=== PATIENT | female | born 1985 | race Caucasian/White ===

== ENCOUNTER 2016-10-27 07:32 | Emergency (ER) | payer BC ==
[2016-10-27] MEDS ORDERED: diPHENhydraMINE PO* 25 MG PO ONE (08:09)
[2016-10-27 08:54] VITALS: BP 124/69
--- NOTE | 2016-10-27 15:00 | ED ---
Ashlie Silveira Thomas, scribed for Rufus Gaytan MD on 10/27/16 at 0800 . Skin Complaint - HPI Summary HPI Summary: The pt is a 31 y/o F that presents to the ED c/o many pruritic rashes on her bilateral LEs below the knee that began 7 days ago. There is also a single rash to her L forearm. She denies pain to the affected areas but reports that she has constant itching. The rashes are slightly raised in appearance and have a blue border, which the pt attributes to topical application of "some [place] medication". The pt admits that she has scratched the rashes profusely in the past week, including in the examination room. The pt took Benadryl ADVERTISING DIRECTOR to minor relief of itching. The pt reports that it is probable that she had recent exposure to insect bites. - History of Current Complaint Chief Complaint: EDRashSkinAbscess Time Seen by Provider: 10/27/16 07:54 Stated Complaint: ITCHY BUG BITES Hx Obtained From: Patient Hx Last Menstrual Period: 25 WEEKS Onset/Duration: Started Days Ago - 7 days, Still Present Timing: Constant Current Severity: None Pain Intensity: 0 Pain Scale Used: 0-10 Numeric Skin Location: Leg - bilaterally below the the knees Character: Pruritus, Raised Aggravating Symptom(s): Nothing Alleviating Symptom(s): Other: - benadryl, to minor relief Associated Signs & Symptoms: Rash Related History: Possible Reaction to: Insect - Additional Pertinent History Primary Care Physician: GEOVANNY - Allergy/Home Medications Allergies/Adverse Reactions: Allergies Allergy/AdvReac Type Severity Reaction Status Date / Time Doxycycline Allergy Rash And Verified 10/27/16 07:36 Itching PMH/Surg Hx/FS Hx/Imm Hx Previously Healthy: No Cardiovascular History: Denies: Hx Pacemaker/ICD History: Reports: Other Problems/Disorders - UTI Psychiatric History: Reports: Hx Anxiety, Hx Depression, Hx Community Mental Health Tx, Hx Suicide Attempt Denies: Hx Panic Disorder, Hx of Violent Episodes Against Others, Hx Substance Abuse - Surgical History Surgery Procedure, Year, and Place: CYST REMOVED FROM LT [facility], NOSE SURGERY Infectious Disease History: No Infectious Disease History: Denies: Traveled Outside the [place] in Last 30 Days - Family History Known Family History: Negative: Hypertension, Diabetes - Social History Alcohol Use: None Substance Use Type: Reports: None Smoking Status (MU): Never Smoked Tobacco Review of Systems Constitutional: Negative Negative: Fever, Chills Eyes: Negative ENT: Negative Cardiovascular: Negative Respiratory: Negative Gastrointestinal: Negative Genitourinary: Negative Musculoskeletal: Negative Positive: Rash - many slighlty raised blue-appearing and pruritic rashes to the bilateral LEs below the knee with one rash on the L forearm Neurological: Negative Psychological: Normal All Other Systems Reviewed And Are Negative: Yes Physical Exam - Summary Physical Exam Summary: VITAL SIGNS: Reviewed. GENERAL: ~Patient is a well-developed and nourished female who is lying comfortable in the stretcher. ~Patient is not in any acute respiratory distress. HEAD AND FACE: No signs of trauma. ~No ecchymosis, hematomas or skull depressions. No sinus tenderness. EYES: PERRLA, EOMI x 2, No injected conjunctiva, no nystagmus. EARS: Hearing grossly intact. Ear canals and tympanic membranes are within normal limits. MOUTH: Oropharynx within normal limits. NECK: Supple, trachea is midline, no adenopathy, no JVD, no carotid bruit, no c- spine tenderness, neck with full ROM. CHEST: Symmetric, no tenderness at palpation LUNGS: Clear to auscultation bilaterally. No wheezing or crackles. CVS: Regular rate and rhythm, S1 and S2 present, no murmurs or gallops appreciated. ABDOMEN: Soft, non-tender. No signs of distention. No rebound no guarding, and no masses palpated. Bowel sounds are normal. EXTREMITIES: FROM in all major joints, no edema, no cyanosis or clubbing. NEURO: Alert and oriented x 3. No acute neurological deficits. Speech is normal and follows commands. SKIN: Many blue-appearing rashes to the bilateral lower extremities below the knee. One rash on the L forearm. Dry and warm Triage Information Reviewed: Yes Vital Signs On Initial Exam: Initial Vitals Pulse Resp BP Pulse Ox 64 16 119/77 98 10/27/16 07:35 10/27/16 07:35 10/27/16 07:35 10/27/16 07:35 Vital Signs Reviewed: Yes - Porfirio Coma Scale Coma Scale Total: 15 Diagnostics - Vital Signs Vital Signs Temp Pulse Resp BP Pulse Ox 10/27/16 07:50 76 98 10/27/16 07:37 98.1 F 69 16 119/77 98 10/27/16 07:35 64 16 119/77 98 - Laboratory Lab Statement: Any lab studies that have been ordered have been reviewed, and results considered in the medical decision making process. Course/Dx - Course Assessment/Plan: The pt is a 31 y/o F that presents to the ED c/o many pruritic rashes on her bilateral LEs below the knee that began 7 days ago. There is also a single rash to her L forearm. She denies pain to the affected areas but reports that she has constant itching. The rashes are slightly raised in appearance and have a blue border, which the pt attributes to "some [place] medication". The pt admits that she has scratched the rashes profusely in the past week, including in the examination room. The pt took Benadryl ADVERTISING DIRECTOR to no or minor relief of itching. The pt reports that she thinks that she had recent exposure to bug bites. Bites are only in exposed areas. I believe her symptoms are due to insect bites and possible a reaction to this topical cream. She does not know the name of the medications. Therefore, she was asked to not use the current medication just apply Caladryl and take benadryl PRN for itching. She understands and agrees. I discussed all the findings and test results with the patient. Patient was instructed to return to the emergency room immediately if any of the symptoms return or worsens. Plan of care was discussed with the patient and understands and agrees. All questions were answered at patient satisfaction. There were no further complaints or concerns. Lung exam before discharge: CTA B/L. Good air exchange. No wheezing or crackles heard. CVS: S1 and S2 present. No murmurs appreciated. Patient is alert and oriented x 3. Patient is hemodynamically stable. Patient will be discharged home with follow up PCP in the next 2-3 days - Differential Diagnoses - Skin Complaint Differential Diagnoses: Poison [place], Poison [place], Scabies, Urticaria - Diagnoses Provider Diagnoses: Insect bites Discharge - Discharge Plan Condition: Stable Disposition: HOME Prescriptions: diPHENhydraMINE PO* [Benadryl PO 25 MG TAB*] 25 mg PO TID PRN #30 tab PRN Reason: Itching Patient Education Materials: Insect Bite or Sting (ED) Referrals: Bev Villa MD [Primary Care Provider] - 3 Days The documentation as recorded by the tarasibAshlie hewitt Thomas accurately reflects the service I personally performed and the decisions made by me, Rufus Gaytan MD.
== END 2016-10-27 08:53 | disposition home or self-care (01) ==
LOC: ED 07:32
DX: O26.892 Other specified pregnancy related conditions, second trimester (principal); S80.862A Insect bite (nonvenomous), left lower leg, initial encounter; S80.861A Insect bite (nonvenomous), right lower leg, initial encounter; S50.862A Insect bite (nonvenomous) of left forearm, initial encounter; Z3A.25 25 weeks gestation of pregnancy; W57.XXXA Bitten or stung by nonvenomous insect and other nonvenomous arthropods, initial encounter; Y93.9 Activity, unspecified; Y92.9 Unspecified place or not applicable; Z88.1 Allergy status to other antibiotic agents; F41.9 Anxiety disorder, unspecified; F32.9 Major depressive disorder, single episode, unspecified
CPT/HCPCS: 99282; A9270-GY

== ENCOUNTER 2016-11-03 11:24 | Emergency (ER) | payer BC ==
[2016-11-03 11:30] VITALS: BP 114/71
== END 2016-11-03 14:50 | disposition left against medical advice (07) ==
LOC: ED 11:24
DX: T14.8 Other injury of unspecified body region (principal); W57.XXXA Bitten or stung by nonvenomous insect and other nonvenomous arthropods, initial encounter; Y93.9 Activity, unspecified; Y92.9 Unspecified place or not applicable; Y99.9 Unspecified external cause status; Z53.21 Procedure and treatment not carried out due to patient leaving prior to being seen by health care provider

== ENCOUNTER → 2016-11-15 09:38 | Emergency (ER) | payer BC ==
[~2016-11-15 09:38] MED LIST: NS 0.9% 1000 ML* 1,000 ML IV ONE; Ondansetron INJ* 2 MG/ML VIAL IV ONE
--- NOTE | 2016-11-15 11:28 | ED ---
Abdominal Pain/Female - HPI Summary HPI Summary: Patient presents with 1 days of dizziness and nausea. She awoke this morning with these symptoms and they have been constant. She feels improved since this morning. Denies fevers, sweats, chills or weakness. Denies constipation, notes some looser stools since yesterday. Denies eating anything abnormal. She has never had this before. Chance of , but test 2 days confirmed negative. She denies confusion, weakness, visual disturbances. Denies rash or known tick bite. Denies [place], malaise or body aches. She is afebrile on arrival to the ED. She continues to feels nauseous but dizziness has improved. Dizziness worse with standing quickly and better with laying down. Denies any pain at this time, has taken no medications and denies allergies. - History of Current Complaint Chief Complaint: EDGeneral Stated Complaint: DIZZY/NAUSEA Time Seen by Provider: 11/15/16 09:54 Hx Obtained From: Patient ?: No Onset/Duration: Sudden Onset Timing: Constant Severity Initially: Mild Severity Currently: Mild Pain Intensity: 0 Pain Scale Used: 0-10 Numeric Alleviating Factor(s): Position Associated Signs and Symptoms: Positive: Negative - Risk Factors Ectopic Risk Factor: Maternal Age ^ 30 Allergies/Adverse Reactions: Allergies Allergy/AdvReac Type Severity Reaction Status Date / Time Doxycycline Allergy Rash And Verified 11/15/16 09:42 Itching PMH/Surg Hx/FS Hx/Imm Hx Previously Healthy: Yes Cardiovascular History: Denies: Hx Pacemaker/ICD History: Reports: Other Problems/Disorders - UTI Psychiatric History: Reports: Hx Anxiety, Hx Depression, Hx Community Mental Health Tx, Hx Suicide Attempt Denies: Hx Panic Disorder, Hx of Violent Episodes Against Others, Hx Substance Abuse - Surgical History Surgery Procedure, Year, and Place: CYST REMOVED FROM LT [facility], NOSE SURGERY - Immunization History Hx Pertussis Vaccination: No Immunizations Up to Date: Unable to Obtain/Confirm Infectious Disease History: No Infectious Disease History: Denies: Traveled Outside the [place] in Last 30 Days - Family History Known Family History: Negative: Hypertension, Diabetes - Social History Occupation: Unemployed Lives: With Family Alcohol Use: None Hx Substance Use: No Substance Use Type: Reports: None Hx Tobacco Use: No Smoking Status (MU): Never Smoked Tobacco Do You Chew or Dip Tobacco: No Review of Systems Constitutional: Negative Eyes: Negative ENT: Negative Respiratory: Negative Positive: Nausea Positive: no symptoms reported, see HPI Musculoskeletal: Negative Neurological: Other - dizziness Psychological: Normal All Other Systems Reviewed And Are Negative: Yes Physical Exam Triage Information Reviewed: Yes Vital Signs On Initial Exam: Initial Vitals Temp Pulse Resp BP Pulse Ox 98.1 F 71 16 128/71 97 11/15/16 09:42 11/15/16 09:42 11/15/16 09:42 11/15/16 09:42 11/15/16 09:42 Vital Signs Reviewed: Yes Appearance: Positive: Well-Appearing, Well-Nourished Skin: Positive: Warm, Skin Color Reflects Adequate Perfusion Head/Face: Positive: Normal Head/Face Inspection Eyes: Positive: EOMI, LATANYA, Conjunctiva Clear Neck: Positive: Supple, No Lymphadenopathy Respiratory/Lung Sounds: Positive: Clear to Auscultation, Breath Sounds Present Cardiovascular: Positive: Normal, RRR, Pulses are Symmetrical in both Upper and Lower Extremities Abdomen Description: Positive: Nontender, No Organomegaly Bowel Sounds: Positive: Present Musculoskeletal: Positive: Normal, Strength/ROM Intact Neurological: Positive: Normal, Sensory/Motor Intact, Alert, Oriented to Person Place, Time Psychiatric: Positive: Normal AVPU Assessment: Alert - Porfirio Coma Scale Coma Scale Total: 15 Diagnostics - Vital Signs Vital Signs Temp Pulse Resp BP Pulse Ox 11/15/16 10:35 98.7 F 68 20 107/70 99 11/15/16 09:42 98.1 F 71 16 128/71 97 - Laboratory Result Diagrams: 11/15/16 11:40 11/15/16 11:40 Lab Statement: Any lab studies that have been ordered have been reviewed, and results considered in the medical decision making process. Abdominal Pain Fem Course/Dx - Course Course Of Treatment: Patient given 1L normal saline. zofran with effect. Labs drawn. Labs WNL. Patient recently discontinued prednisone for scabies infection. Likely this is the cause of the dizziness. It was explained to patient and she agress. Meclizine and zofran rx. Medications were reveiwed with patient. Encouarged to follow up with PCP or return to ED for worsening symptoms. Return precautions given. Patient understands and agrees with plan. Ok for discharge. - Diagnoses Differential Diagnosis: Positive: Other - dizziness, BPPV, medication reaction Provider Diagnoses: Dizziness Discharge - Discharge Plan Condition: Stable Disposition: HOME Prescriptions: Meclizine TAB* [Antivert 12.5 TAB*] 12.5 mg PO TID #30 tab Ondansetron ODT TAB* [Zofran 4 MG Odt TAB*] 4 mg PO Q6H PRN #12 tab.odt MDD 4 PRN Reason: Nausea Patient Education Materials: Dizziness (ED) Referrals: Bev Villa MD [Primary Care Provider] - Additional Instructions: Follow up with your PCP Drink plenty of fluids If symptoms become worse, return to the ED
[2016-11-15 12:05] LABS: Hematocrit 45 % (35-47); Hemoglobin 14.9 g/dl (12.0-16.0); Mean Corpuscular HGB Conc 33 g/dl (31-36); Mean Corpuscular Hemoglobin 30 pg (27-31); Mean Corpuscular Volume 91 fL (80-97); Mean Platelet Volume 9 um3 (7.4-10.4); Red Blood Count 4.97 10^6/ul (4.0-5.4); Red Cell Distribution Width 13 % (10.5-15); White Blood Count 8.3 10^3/ul (3.5-10.8)
[2016-11-15 12:24] LABS: ALT 10 U/L (7-52); AST 14 U/L (13-39); Albumin 4.3 g/dL (3.2-5.2); Alkaline Phosphatase 57 U/L (34-104); Anion Gap 8 mmol/L (2-11); BUN/Creatinine Ratio 21.7 (8-20); Blood Urea Nitrogen 13 mg/dL (6-24); C Reactive Protein < 1.00 mg/L (< 5.00); CO2 Carbon Dioxide 26 mmol/L (22-32); Calcium 9.5 mg/dL (8.6-10.3); Chloride 103 mmol/L (101-111); Creatine Kinase 28 U/L (10-223); EGFR Non-African American 117.4 (>60); Globulin 2.9 g/dL (2-4); Glucose 84 mg/dL (70-100); Lipase 14 U/L (11.0-82.0); Magnesium 2.1 mg/dL (1.9-2.7); Potassium 3.8 mmol/L (3.5-5.0); Sodium 137 mmol/L (133-145); Total Protein 7.2 g/dL (6.4-8.9)
[2016-11-15 14:04] LABS: Urine Bilirubin Negative (Negative); Urine Glucose Negative (Negative); Urine Nitrite Negative (Negative)
[2016-11-15 14:22] VITALS: BP 116/73
== END | disposition home or self-care (01) ==
LOC: ED 09:38
DX: R42 Dizziness and giddiness (principal); R11.0 Nausea
CPT/HCPCS: 36415; 80053; 81003; 82550; 83605; 83690; 83735; 85025; 86140; 96374; 99283; J2405

== ENCOUNTER 2017-03-22 15:15 | Emergency (ER) | payer BC ==
[2017-03-22 15:23] VITALS: BP 123/68
--- NOTE | 2017-03-22 17:41 | ED ---
Breast Complaint - HPI Summary HPI Summary: Patient presents with 12 hour history of right breast pain, erythema and warmth. Currently breast-feeding. She states she has had this before and was given antibiotics. Endorses a fever highest at 100.5. She has felt fatigued x 1 day. Continues to breast feed. She states yesterday she sustained an injury to the breast when her son bit the end of the nipple. Since that time, the breast has slowly become more painful and red. She just started feeling more ill this morning. Denies health problems. Denies hx of MRSA. - History of Current Complaint Hx Obtained From: Patient Breast Chief Complaint: Breast, Right, Inflammation, Color Changes Onset/Duration: Started Hours Ago Timing: Constant Breast Pain Aggravating Factors: Breast Feeding, Palpation Breast Pain Alleviating Factors: Nothing Breast Associated Signs/Symptoms: Fever, Warmth Breast Related History: Similar Diagnosis as: - previous mastitis - Additional Pertinent History Primary Care Physician: GEOVANNY Breast History: Breastfed Previously with [facility] - Allergy/Home Medications Allergies/Adverse Reactions: Allergies Allergy/AdvReac Type Severity Reaction Status Date / Time Doxycycline Allergy Rash And Verified 11/15/16 09:42 Itching PMH/Surg Hx/FS Hx/Imm Hx Previously Healthy: Yes Cardiovascular History: Denies: Hx Pacemaker/ICD History: Reports: Other Problems/Disorders - UTI Psychiatric History: Reports: Hx Anxiety, Hx Depression, Hx Community Mental Health Tx, Hx Suicide Attempt Denies: Hx Panic Disorder, Hx of Violent Episodes Against Others, Hx Substance Abuse - Surgical History Surgery Procedure, Year, and Place: CYST REMOVED FROM LT [facility], NOSE SURGERY - Immunization History Hx Pertussis Vaccination: No Immunizations Up to Date: Unable to Obtain/Confirm Infectious Disease History: No Infectious Disease History: Denies: Traveled Outside the [place] in Last 30 Days - Family History Known Family History: Negative: Hypertension, Diabetes - Social History Occupation: Unemployed Lives: With Family Alcohol Use: Rare Hx Substance Use: No Substance Use Type: Reports: None Hx Tobacco Use: No Smoking Status (MU): Never Smoked Tobacco Review of Systems Positive: Fever, Chills, Fatigue. Negative: Skin Diaphoresis Eyes: Negative ENT: Negative Cardiovascular: Negative Respiratory: Negative Positive: no symptoms reported, see HPI Musculoskeletal: Negative Neurological: Negative All Other Systems Reviewed And Are Negative: Yes Physical Exam Triage Information Reviewed: Yes Vital Signs On Initial Exam: Initial Vitals Temp Pulse Resp BP Pulse Ox 99 F 89 18 123/68 99 03/22/17 15:20 03/22/17 15:20 03/22/17 15:20 03/22/17 15:20 03/22/17 15:20 Vital Signs Reviewed: Yes Appearance: Positive: Well-Appearing, Well-Nourished Skin: Positive: Skin Color Reflects Adequate Perfusion, Other - breast warmth and redness Head/Face: Positive: Normal Head/Face Inspection Eyes: Positive: EOMI, LATANYA, Conjunctiva Clear Neck: Positive: Supple, No Lymphadenopathy Respiratory/Lung Sounds: Positive: Clear to Auscultation, Breath Sounds Present Cardiovascular: Positive: Pulses are Symmetrical in both Upper and Lower Extremities Musculoskeletal: Positive: Strength/ROM Intact Neurological: Positive: Speech Normal Psychiatric: Positive: Normal, Affect/Mood Appropriate - [place] Coma Scale Coma Scale Total: 15 Diagnostics - Vital Signs Vital Signs Temp Pulse Resp BP Pulse Ox 03/22/17 15:32 100.1 F 03/22/17 15:20 99 F 89 18 123/68 99 - Laboratory Lab Statement: Any lab studies that have been ordered have been reviewed, and results considered in the medical decision making process. Breast Pain Course/Dx - Course Course Of Treatment: Patient evaluated for right breast pain, redness, and warmth. Continues to breast feed with pain, but without obstruction. Denies fullness in the breast. Fever at 100.5 on arrival. Has not taken any OTC medications. Pain and tenderness with redness in the right upper quadrant of the breast x 1 day. According to UTD, after 12 hours or accompanied by fever should be treated with abx. She is given dicloxicillin 500mg four times daily for 7 days. Encouraged ice packs, ibuprofen for swelling and probiotics on opposite schedule. Continue to drain breast and breast feed. She is Ok with plan and discharge. Tylenol for pain and fever. - Differential Diagnoses Differential Diagnosis/HQI/PQRI: Mastitis - Diagnoses Provider Diagnoses: Nonpurulent mastitis associated with Discharge - Discharge Plan Condition: Stable Disposition: HOME Prescriptions: Dicloxacillin CAP* [Dynapen CAP*] 500 mg PO QID #28 cap Patient Education Materials: Mastitis (ED) Referrals: Bev Villa MD [Primary Care Provider] - Additional Instructions: Lactational Mastitis Initial management of nonsevere lactational mastitis consists of symptomatic treatment to reduce pain and swelling (nonsteroidal inflammatory agents, cold compresses) and complete emptying of the breast (via ongoing , pumping, and/or hand expression); cessation of is not required. If you have a fever, symptoms have remained over 12 hours, anitbiotics are recommended. Dicloxicillin 500 mg orally four times daily x 7 days. If you develop fevers, sweats or chills, worsening pain, redness, warmth or are unable to fully empty the breast you need to return to the ED immediately. Administration of a Lactobacillus probiotic during late may reduce the likelihood of lactational mastitis. Although the kiln stoker recommends that caution be exercised when administering dicloxacillin to women, penicillins are considered compatible with when used in usual recommended doses. Dicloxacillin has been recommended to treat mastitis in lactating women. Tylenol 650mg three times daily for fevers and pain.
== END 2017-03-22 16:02 | disposition home or self-care (01) ==
LOC: ED 15:15
DX: O91.22 Nonpurulent mastitis associated with the puerperium (principal); R50.9 Fever, unspecified; R53.83 Other fatigue
CPT/HCPCS: 99282

== ENCOUNTER 2017-07-18 19:36 | Emergency (ER) | payer BC ==
--- NOTE | 2017-07-18 21:26 | RAD ---
INDICATION: Breast feeding. Right breast swelling COMPARISON: None TECHNIQUE: Radial and antiradial scans of the breast were performed using grayscale and color Doppler imaging. FINDINGS: There are no cystic or solid masses. There is no acoustic shadowing. There is no distortion of the breast architecture. The sonographic findings are within normal limits. IMPRESSION: NO CYSTIC OR SOLID BREAST MASS. NO EVIDENCE OF ABSCESS FORMATION. CLINICAL MANAGEMENT OF THE SKIN CHANGE IN THE AREA OF INDURATION IS REQUIRED. ASSESSMENT: ACR BIRADS Category 1: Negative
--- NOTE | 2017-07-18 22:07 | ED ---
Skin Complaint - HPI Summary HPI Summary: 31-year-old female presents with right breast erythema and edema for the past day. States she has been breast-feeding for 2 years. She states she has had 3 episodes of mastitis. She states this feels similar. She has been pumping today. She continues to pump. She denies any fevers or chills. She denies any chest pain or shortness of breath. She denies any abnormal nipple discharge. She denies any bowel pain nausea vomiting. She states that every time she tries to stop breast-feeding she develops mastitis. - History of Current Complaint Chief Complaint: EDBreastComplaint Time Seen by Provider: 07/18/17 20:07 Stated Complaint: RED SWOLLEN BREAST/PAIN Pain Intensity: 7 - Additional Pertinent History Primary Care Physician: GEOVANNY - Allergy/Home Medications Allergies/Adverse Reactions: Allergies Allergy/AdvReac Type Severity Reaction Status Date / Time doxycycline Allergy Rash And Verified 07/18/17 19:46 Itching PMH/Surg Hx/FS Hx/Imm Hx Cardiovascular History: Denies: Hx Pacemaker/ICD History: Reports: Other Problems/Disorders - UTI Sensory History: Psychiatric History: Reports: Hx Anxiety, Hx Depression, Hx Community Mental Health Tx, Hx Suicide Attempt Denies: Hx Panic Disorder, Hx of Violent Episodes Against Others, Hx Substance Abuse - Surgical History Surgery Procedure, Year, and Place: CYST REMOVED FROM LT [facility], NOSE SURGERY Infectious Disease History: No Infectious Disease History: Denies: Traveled Outside the [place] in Last 30 Days - Family History Known Family History: Negative: Hypertension, Diabetes - Social History Alcohol Use: Rare Hx Substance Use: No Substance Use Type: Reports: None Hx Tobacco Use: No Smoking Status (MU): Never Smoked Tobacco Review of Systems Negative: Fever Negative: Chest Pain Negative: Shortness Of Breath Positive: Rash, Other - right breast tenderness All Other Systems Reviewed And Are Negative: Yes Physical Exam Triage Information Reviewed: Yes Vital Signs On Initial Exam: Initial Vitals Temp Pulse Resp BP Pulse Ox 98.6 F 88 16 106/61 97 07/18/17 19:43 07/18/17 19:43 07/18/17 19:43 07/18/17 19:43 07/18/17 19:43 Vital Signs Reviewed: Yes Appearance: Positive: Well-Appearing Skin: Positive: Warm, Dry, Other - erythema to right breast at 9 position Head/Face: Positive: Normal Head/Face Inspection Eyes: Positive: Normal, Conjunctiva Clear Respiratory/Lung Sounds: Positive: Clear to Auscultation, Breath Sounds Present Cardiovascular: Positive: Normal, RRR Musculoskeletal: Positive: Normal Neurological: Positive: Normal Psychiatric: Positive: Affect/Mood Appropriate Diagnostics - Vital Signs Vital Signs Temp Pulse Resp BP Pulse Ox 07/18/17 19:43 98.6 F 88 16 106/61 97 - Laboratory Lab Statement: Any lab studies that have been ordered have been reviewed, and results considered in the medical decision making process. - Ultrasound No standard instances Ultrasound Interpretation: No Acute Changes Ultrasound Interpretation Completed By: Radiologist Course/Dx - Course Course Of Treatment: 31-year-old female presents with right breast erythema and edema for the past day. States she has been breast-feeding for 2 years. She states she has had 3 episodes of mastitis. She states this feels similar. She has been pumping today. She continues to pump. She denies any fevers or chills. She denies any chest pain or shortness of breath. She denies any abnormal nipple discharge. She denies any bowel pain nausea vomiting. She states that every time she tries to stop breast-feeding she develops mastitis. on exam has erythema of near nipple of right breast at 9 position. u/s no abscess. will treat as mastitis with dicloxacin. patient understand and agrees with plan. - Differential Diagnoses - Skin Complaint Differential Diagnoses: Abscess, Cellulitis, Contact Dermatitis - Diagnoses Provider Diagnoses: Mastitis Discharge - Sign-Out/Discharge Documenting (check all that apply): Discharge - Discharge Plan Condition: Good Disposition: HOME Prescriptions: Dicloxacillin CAP* [Dynapen CAP*] 500 mg PO QID #29 cap Patient Education Materials: Mastitis (ED) Referrals: Bev Villa MD [Primary Care Provider] - Additional Instructions: Take antibiotic four times a day for [address] ice on area Take tyenlol or ibuprofen every 6 hours for pain Return to ED if develop any new or worsening symptoms - Billing Disposition and Condition Condition: GOOD Disposition: HOME
[2017-07-18] MEDS ORDERED: Dicloxacillin CAP* 250 MG PO ONE (22:12)
[2017-07-18 22:35] VITALS: BP 110/69
== END 2017-07-18 22:36 | disposition home or self-care (01) ==
LOC: ED 19:36
DX: N61.0 Mastitis without abscess (principal)
CPT/HCPCS: 99283; A9270-GY

== ENCOUNTER 2017-08-15 08:02 | Emergency (ER) | payer BC ==
--- NOTE | 2017-08-15 08:38 | ED ---
GI/ HPI - HPI Summary HPI Summary: patient here with vaginal bleeding noted upon waking this morning. Associated sx of mild pelvic cramping, Lt > Rt. She reports the flow is about that of a period and she is about 5 weeks per a nurse call back from hcg testing on 08/11/2017. She had this testing after missing her period. Her serum HCG level was 21 at that time (NOTE: > 25 positive). Her other was healthy. H/o ovarian cyst. No other medical hx. - History of Current Complaint Chief Complaint: EDVaginalBleeding Time Seen by Provider: 08/15/17 08:21 Stated Complaint: VAGINAL BLEEDING Hx Obtained From: Patient Pain Intensity: 6 - Additional Pertinent History Primary Care Physician: GEOVANNY - Allergy/Home Medications Allergies/Adverse Reactions: Allergies Allergy/AdvReac Type Severity Reaction Status Date / Time doxycycline Allergy Rash And Verified 08/15/17 08:04 Itching PMH/Surg Hx/FS Hx/Imm Hx Previously Healthy: Yes Endocrine/Hematology History: Denies: Hx Anticoagulant Therapy, Hx Blood Disorders, Hx Thyroid Disease, Hx Anemia, Hx Unexplained Bleeding Cardiovascular History: Denies: Hx Pacemaker/ICD History: Reports: Other Problems/Disorders - UTI; Lt ovarian cyst Sensory History: Psychiatric History: Reports: Hx Anxiety, Hx Depression, Hx Community Mental Health Tx, Hx Suicide Attempt Denies: Hx Panic Disorder, Hx of Violent Episodes Against Others, Hx Substance Abuse - Surgical History Surgery Procedure, Year, and Place: CYST REMOVED FROM LT [facility], NOSE SURGERY Infectious Disease History: Yes Infectious Disease History: Denies: Traveled Outside the [place] in Last 30 Days - Family History Known Family History: Negative: Hypertension, Diabetes - Social History Occupation: Unemployed Lives: With Family Alcohol Use: Rare Hx Substance Use: No Substance Use Type: Reports: None Hx Tobacco Use: No Smoking Status (MU): Never Smoked Tobacco Review of Systems Constitutional: Negative Negative: Fever, Chills, Fatigue Cardiovascular: Negative Respiratory: Negative Gastrointestinal: Other - cramping Negative: Vomiting, Diarrhea, Nausea Positive: see HPI Musculoskeletal: Negative Skin: Negative Neurological: Negative Psychological: Normal All Other Systems Reviewed And Are Negative: Yes Physical Exam Triage Information Reviewed: Yes Vital Signs On Initial Exam: Initial Vitals Temp Pulse Resp BP Pulse Ox 98.3 F 85 16 117/79 99 08/15/17 08:05 08/15/17 08:05 08/15/17 08:05 08/15/17 08:05 08/15/17 08:05 Vital Signs Reviewed: Yes Appearance: Positive: Well-Appearing, No Pain Distress, Well-Nourished Skin: Positive: Warm, Skin Color Reflects Adequate Perfusion, Dry Head/Face: Positive: Normal Head/Face Inspection Eyes: Positive: Normal, EOMI, Conjunctiva Clear - anicteric sclera ENT: Positive: Normal ENT inspection, Hearing grossly normal, Pharynx normal - mucosa moist Neck: Positive: Supple Respiratory/Lung Sounds: Positive: Clear to Auscultation, Breath Sounds Present Cardiovascular: Positive: Normal, RRR, Pulses are Symmetrical in both Upper and Lower Extremities, S1, S2 Abdomen Description: Positive: No Organomegaly, Soft, Other: - very mild LLQ TTP - no rebounding Bowel Sounds: Positive: Present Pelvic Exam: Positive: Other - deferred Musculoskeletal: Positive: Normal, Strength/ROM Intact Neurological: Positive: Normal, Sensory/Motor Intact, Alert, Oriented to Person Place, Time, CN Intact II-III Psychiatric: Positive: Normal Diagnostics - Vital Signs Vital Signs Temp Pulse Resp BP Pulse Ox 08/15/17 08:05 98.3 F 85 16 117/79 99 - Laboratory Result Diagrams: 08/15/17 08:32 08/15/17 08:32 Lab Statement: Any lab studies that have been ordered have been reviewed, and results considered in the medical decision making process. GIGU Course/Dx - Course Course Of Treatment: Labs reveal hcg of 2. Compared to previous and in light of HPI, suspect miscarriage. She has B+ blood so rhogam is not required at this time. She is also not in any distress and continues to have vaginal bleeding at the flow rate a regular period. Will have her monitor symptoms for dangerous issues and return to the emergency department they present. Otherwise she may follow-up with her PREFORM PLATE MAKER. - Diagnoses Provider Diagnoses: Miscarriage Discharge - Sign-Out/Discharge Documenting (check all that apply): Discharge/Admit/Transfer - Discharge Plan Condition: Stable Disposition: HOME Patient Education Materials: Miscarriage (ED) Referrals: Octaviano Mg MD [Medical Doctor] - Additional Instructions: Follow-up with OBGYN - call today to schedule an appointment. *If you develop fever, chills, vomiting, abdominal pain, heavy bleeding, return to ED - Billing Disposition and Condition Condition: STABLE Disposition: HOME
[2017-08-15 08:42] LABS: ABS Basophils 0.1 10^3/ul (0-0.2); ABS Eosinophils 0.1 10^3/ul (0-0.6); ABS Lymphocytes 1.9 10^3/ul (1.0-4.8); ABS Monocytes 0.6 10^3/ul (0-0.8); ABS Neutrophils 5.4 10^3/ul (1.5-7.7); ABS Nucleated RBC 0 10^3/ul; Eosinophil % 1.1 % (0-6); Hematocrit 42 % (35-47); Hemoglobin 14.1 g/dl (12.0-16.0); Lymphocyte % 23.1 % (25-47); Mean Corpuscular HGB Conc 34 g/dl (31-36); Mean Corpuscular Hemoglobin 30 pg (27-31); Mean Corpuscular Volume 89 fL (80-97); Mean Platelet Volume 8.9 um3 (7.4-10.4); Nucleated Red Blood Cells % 0; Platelet Count 201 10^3/ul (150-450); Red Blood Count 4.69 10^6/ul (4.0-5.4); Red Cell Distribution Width 13 % (10.5-15)
[2017-08-15 09:00] LABS: INR 0.91 (0.77-1.02)
[2017-08-15 09:01] LABS: EGFR Non-African American 119.7 (>60)
[2017-08-15 09:11] VITALS: BP 118/74
--- NOTE | 2017-08-15 09:24 | RAD ---
INDICATION: 5 weeks with bleeding and cramping COMPARISON: None TECHNIQUE: Transvaginal scans were performed as part of determination. FINDINGS: There is endometrial reactive change but there is no sonographic evidence of intrauterine gestation. Endometrium measures 1.4 cm. There is no adnexal mass or free fluid. The right ovary measures 2.7 x 1.5 x 1.9 cm in the left 4.2 x 1.6 x 2.9 cm IMPRESSION: NO SONOGRAPHICALLY IDENTIFIABLE INTRAUTERINE GESTATION. CORRELATION WITH SERIAL BETA HCGS AND FOLLOW-UP ULTRASONOGRAPHY IS REQUIRED TO EVALUATE FOR VIABILITY. NO ADNEXAL MASS OR FREE FLUID.
== END 2017-08-15 10:20 | disposition home or self-care (01) ==
LOC: ED 08:02
DX: O03.9 Complete or unspecified spontaneous abortion without complication (principal)
CPT/HCPCS: 36415; 76817; 80053; 84702; 85025; 85610; 85730; 86850; 86900; 86901; 99282

== ENCOUNTER 2018-03-28 15:24 | Emergency (ER) | payer MEDICAID, OTHER ==
[2018-03-28] MEDS ORDERED: NS 0.9% 1000 ML* 1,000 ML IV ONE (15:52)
--- NOTE | 2018-03-28 16:09 | ED ---
Abdominal Pain/Female - HPI Summary HPI Summary: This patient is a 32 year old female presenting to [facility] with a chief complaint of abd pain for a couple weeks. Patient states that she has had diffuse abd pain and diarrhea. She also notes that she is weeks . Patient is . The pain is rated 3/10 in severity. Symptoms aggravated by nothing. Symptoms alleviated by nothing. Patient denies vaginal bleeding, fever, nausea, or vomiting. - History of Current Complaint Chief Complaint: EDAbdPain Stated Complaint: ABD PAIN/WEAKNESS Time Seen by Provider: 03/28/18 15:54 Hx Obtained From: Patient ?: Yes Onset/Duration: Lasting Weeks, Still Present Timing: Constant Severity Currently: Mild Pain Intensity: 3 Pain Scale Used: 0-10 Numeric Location: Diffuse Aggravating Factor(s): Nothing Alleviating Factor(s): Nothing Associated Signs and Symptoms: Positive: Negative - vaginal bleeding, fever, nausea, or vomiting Allergies/Adverse Reactions: Allergies Allergy/AdvReac Type Severity Reaction Status Date / Time doxycycline Allergy Rash And Verified 03/08/18 06:36 Itching PMH/Surg Hx/FS Hx/Imm Hx Previously Healthy: Yes Endocrine/Hematology History: Denies: Hx Anticoagulant Therapy, Hx Blood Disorders, Hx Thyroid Disease, Hx Anemia, Hx Unexplained Bleeding Cardiovascular History: Denies: Hx Pacemaker/ICD History: Reports: Other Problems/Disorders - UTI; Lt ovarian cyst Sensory History: Psychiatric History: Reports: Hx Anxiety, Hx Depression, Hx Community Mental Health Tx, Hx Suicide Attempt Denies: Hx Panic Disorder, Hx of Violent Episodes Against Others, Hx Substance Abuse - Surgical History Surgery Procedure, Year, and Place: CYST REMOVED FROM LT [facility], NOSE SURGERY - Immunization History Date of Influenza Vaccine: 2018 Infectious Disease History: No Infectious Disease History: Denies: Traveled Outside the [place] in Last 30 Days - Family History Known Family History: Negative: Hypertension, Diabetes - Social History Alcohol Use: Rare Hx Substance Use: No Substance Use Type: Reports: None Hx Tobacco Use: No Smoking Status (MU): Never Smoked Tobacco Review of Systems Negative: Fever Positive: Abdominal Pain, Diarrhea. Negative: Vomiting, Nausea Genitourinary: Negative - vaginal bleeding All Other Systems Reviewed And Are Negative: Yes Physical Exam - Summary Physical Exam Summary: Appearance: Well appearing, no pain distress Skin: warm, dry, reflects adequate perfusion Head/face: normal Eyes: EOMI, LATANYA ENT: mucous membranes moist Neck: supple, non-tender Respiratory: CTA, breath sounds present Cardiovascular: RRR, pulses symmetrical Abdomen: non-tender, soft Bowel Sounds: present, Bedside intrauterine with heartbeat Musculoskeletal: normal, strength/ROM intact Neuro: normal, sensory motor intact, A&Ox3 Triage Information Reviewed: Yes Vital Signs On Initial Exam: Initial Vitals Temp Pulse Resp BP Pulse Ox 96.6 F 87 16 129/73 98 03/28/18 15:27 03/28/18 15:27 03/28/18 15:27 03/28/18 15:27 03/28/18 15:27 Vital Signs Reviewed: Yes Diagnostics - Vital Signs Vital Signs Temp Pulse Resp BP Pulse Ox 03/28/18 15:27 96.6 F 87 16 129/73 98 - Laboratory Result Diagrams: 03/28/18 16:05 03/28/18 16:05 Diagnostic Studies Comment: HCG [id number] Lab Statement: Any lab studies that have been ordered have been reviewed, and results considered in the medical decision making process. - Additional Comments Diagnostic Additional Comments: US Transvaginal reveals, 7 week, 1 day intrauterine . ED physician has reviewed this radiology report. Abdominal Pain Fem Course/Dx - Course Course Of Treatment: Nurse's note reviewed. Patient has no appreciable abdominal pain at present and was unable to provide any stool sample at this time. Intrauterine was confirmed with 7 week 1 day IUP with appropriate quantitative hCG. She will follow-up with her primary care doctor and her BAG PATCHER. She was hydrated here with improvement. - Diagnoses Differential Diagnosis: Positive: Bowel Obstruction, Irritable Bowel Syndrome, Other - Diarrheal illness/bacterial versus viral Provider Diagnoses: Acute diarrhea, Abdominal pain, First trimester Discharge - Sign-Out/Discharge Documenting (check all that apply): Patient Departure - Discharge Plan Condition: Improved Disposition: HOME Patient Education Materials: (ED), Acute Diarrhea (ED) Referrals: Bev Villa MD [Primary Care Provider] - Additional Instructions: Continue vitamin. Drink plenty of fluids. Diet as tolerated. If he continued to have diarrhea, have your doctor order stool testing. Return if fever, pain, bleeding, worse, new symptoms or other concern. - Billing Disposition and Condition Condition: IMPROVED Disposition: Home - Attestation Statements Document Initiated by Scribe: Yes Documenting Scribe: Joshua Goldstein Provider For Whom Scribe is Documenting (Include Credential): Cash Esquivel MD Scribe Attestation: I, Joshua Goldstein, scribed for Cash Esquivel MD on 03/28/18 at 1718. Scribe Documentation Reviewed: Yes Provider Attestation: The documentation as recorded by the Joshua tamayo accurately reflects the service I personally performed and the decisions made by me, Cash Esquivel MD Status of Scribe Document: Viewed
[2018-03-28 16:11] LABS: ABS Basophils 0 10^3/ul (0-0.2); ABS Eosinophils 0.1 10^3/ul (0-0.6); ABS Lymphocytes 2.4 10^3/ul (1.0-4.8); ABS Monocytes 0.6 10^3/ul (0-0.8); ABS Nucleated RBC 0 10^3/ul; Eosinophil % 0.8 %; Hematocrit 41 % (35-47); Hemoglobin 13.8 g/dl (12.0-16.0); Lymphocyte % 29.6 %; Mean Corpuscular HGB Conc 34 g/dl (31-36); Mean Corpuscular Hemoglobin 30 pg (27-31); Mean Corpuscular Volume 88 fL (80-97); Mean Platelet Volume 8.6 fL (7.4-10.4); Nucleated Red Blood Cells % 0.1; Platelet Count 201 10^3/ul (150-450); Red Blood Count 4.62 10^6/ul (4.00-5.40); Red Cell Distribution Width 13 % (10.5-15); White Blood Count 8.1 10^3/ul (3.5-10.8)
[2018-03-28 16:29] LABS: EGFR Non-African American 147.3 (>60)
[2018-03-28 17:13] VITALS: BP 99/73
== END 2018-03-28 17:10 | disposition home or self-care (01) ==
LOC: ED 15:24
DX: O26.891 Other specified pregnancy related conditions, first trimester (principal); Z3A.01 Less than 8 weeks gestation of pregnancy; R19.7 Diarrhea, unspecified; R10.9 Unspecified abdominal pain
CPT/HCPCS: 36415; 76801; 80053; 83605; 83690; 84702; 85025; 86140; 96360; 99282

== ENCOUNTER 2018-11-06 02:23 | Inpatient (IN) | payer OTHER ==
[2018-11-06] MEDS ORDERED: Promethazine INJ(RESTRICTED)* 25 MG/ML 1 ML VIAL IM PRN (02:54)
[2018-11-06] MEDS ORDERED: Nalbuphine* 10 MG/ML 1 ML VIAL IM PRN (02:54)
[2018-11-06] MEDS ORDERED: Penicillin G Potassium IV* 5,000,000 UNITS in NS 0.9% 100 ML* 100 ML IVPB ONE (08:52)
[2018-11-06] MEDS ORDERED: Buffered Lidocaine 1% SYRIN* 1 ML/SYRINGE INTRADERM ONE (08:52)
[2018-11-06] MEDS ORDERED: Lactated Ringers 1000 ML Bag* 1,000 ML IV ONE ×2 (08:52→14:36)
--- NOTE | 2018-11-06 08:59 | HP ---
General Information - Reason for Visit Pt presents with c/o contractions and inability to sleep. Pt reports + FM, denies VB or LOF. - General Information Maternal Age: 33 Grav: 2 Para: 1 SAB: 0 IEA: 0 Estimated Due Date: 11/11/18 Determined By: Early Ultrasound Gestational Age in Weeks/Days: 39.2 Maternal Blood Type and Rh: B Positive - Results this Serology/RPR Result: Non-Reactive Rubella Result: Immune HBsAg Result: Negative HIV Result: Negative GBS Culture Result: Negative Past Medical History Delivery History: Hx Uncomplicated Vaginal Delivery Pertinent Past Medical History: See Records - depression, history of abnormal thyroid labs(now normal) Pertinent Past Surgical History: None Pertinent Family History: See Records - M: HTN, stroke, CVD, DM; aunt : CVD - Antepartal Records Antepartal Records: Reviewed, Complicated by: - marginal previa ( resolved) Review of Systems Constitutional: Uncomfortable CV Complaint: No Respiratory: Shortness of Breath: No Gastrointestinal: No Nausea/Vomiting, Normal Bowel Movement Genitourinary: No Dysuria, No Bleeding, No Leaking Fluid Musculoskeletal: Contractions Neurological: No Headache, No Visual Changes Movement: Normal Exam Allergies/Adverse Reactions: Allergies doxycycline Allergy (Verified 11/05/18 22:03) Rash And Itching 97.9, P:84, R:18, BP:124/82 - Measurements Height: 5 ft 4 in Weight: 167 lb Weight in lbs: [id number] Body Mass Index (BMI): 28.6 Pre- Weight: 138 lb Weight Gained This : 29 lbs and 0 ozs - Exam Breast: Breast Exam Deferred CVA: No CVA Tenderness Extremities: No Edema Heart: Normal Rhythm/Heart Sounds HEENT: No Significant Findings Lungs: Clear Bilaterally Rectal: Rectal Exam Deferred Reflexes: DTR 2+ Thyroid: No Thyromegaly - Abdominal Exam Abdomen Exam: Fundal Height Consistent with Dates - Ultrasound/Biophysical Profile Ultrasound Status: Not Done Targeted Exam Findings Estimated Weight: 7lbs 3oz Cervical Exam: 4cm Effacement: 90% Station: -1 Presenting Part: Vertex Membrane Status: Bulging EFM Findings - External Monitor Findings Baseline Heart Rate: 135 External Monitor Findings: Accelerations Present, No Pattern of Variable or Late Decelerations, Variability Moderate, Baseline Stable Contractions: Regular, Mild, Moderate, 45-90 Seconds Contraction Frequency: 5 min Assessment/Plan - Assessment 33 y.o. , 39w2d EGA, early labor, GBS + - Obstetrical Risk Factors Obstetrical Risk Factors: GBS Positive - Plan Plan: Admit - Anticipate Vaginal Delivery - Date/Time of Admission Date of Admission: 11/06/18 Time of Admission: 09:00
[2018-11-06] MEDS ORDERED: Lactated Ringers 1000 ML Bag* 1,000 ML IV SCH ×3 (09:00→20:00)
[2018-11-06 10:16] LABS: ABS Eosinophils 0.1 10^3/ul (0-0.6); ABS Lymphocytes 2.1 10^3/ul (1.0-4.8); ABS Monocytes 0.7 10^3/ul (0-0.8); ABS Neutrophils 6.2 10^3/ul (1.5-7.7); Eosinophil % 0.7 %; Hematocrit 38 % (35-47); Hemoglobin 13.1 g/dL (12.0-16.0); Lymphocyte % 22.8 %; Mean Corpuscular HGB Conc 35 g/dL (31-36); Mean Corpuscular Hemoglobin 31 pg (27-31); Mean Corpuscular Volume 90 fL (80-97); Platelet Count 150 10^3/uL (150-450); Red Blood Count 4.21 10^6 /uL (3.70-4.87); Red Cell Distribution Width 14 % (10-15)
[2018-11-06] MEDS: Penicillin G Potassium IV* 2,500,000 UNITS in NS 0.9% 100 ML* 100 ML IVPB SCH ×2 (14:05→18:07)
[2018-11-06] MEDS ORDERED: OBEPIDURAL* 250 ML EPIDURAL ONE (14:13)
[2018-11-06] MEDS ORDERED: Phenylephrine 40 MCG/ML SYRINGE IV PUSH PRN ×2 (14:36)
[2018-11-06] MEDS ORDERED: Sodium Citrate/Citric Acid* 15 ML UDC PO PRN (14:36)
[2018-11-06] MEDS ORDERED: Famotidine TAB* 20 MG PO PRN (14:36)
[2018-11-06] MEDS ORDERED: OBEPIDURAL* 250 ML EPIDURAL SCH (15:00)
[2018-11-06] MEDS ORDERED: Oxytocin in LR* 20 UNITS/1,000 ML BAG IVPB ONE (18:53)
[2018-11-06] MEDS ORDERED: Witch Hazel PAD* JAR TOPICAL PRN (19:08)
[2018-11-06] MEDS ORDERED: Acetaminophen TAB* 325 MG PO PRN (19:08)
[2018-11-06] MEDS ORDERED: Dibucaine 1% 28.35 GM TUBE PR PRN (19:08)
[2018-11-06] MEDS ORDERED: Glycerin ADULT SUPP PR PRN (19:08)
--- NOTE | 2018-11-06 19:10 | PROCNOTE ---
[facility] OB: Delivery Note - Delivery A Date of : 11/06/18 Time of : 18:46 Sex: Male Weight at : 8 lb Score 1 Minute: 7 Score 5 Minutes: 8 Gestational Age in Weeks and Days at Delivery: 39 Weeks and 2 Days Delivery Method: Spontaneous Vaginal Labor: Spontaneous Amniotic Fluid: Clear Estimated Blood Loss: 150 Anesthesia/Analgesia: IM/IV, CEI for Labor Delivered By: Adeline Harrell - Nursery Level of Nursery: Regular/Bedside - Perineum Perineal Injury: Perineal Laceration, 1st Degree Perineal Repair: By Delivering Practioner
[2018-11-06] MEDS ORDERED: Simethicone TAB* 80 MG TAB.CHEW PO SCH (21:00)
[2018-11-06] MEDS ORDERED: Lidocaine 1% INJ* 10 MG/ML 30 ML SDV ONE (23:31)
[2018-11-07] MEDS: Ibuprofen TAB* 600 MG PO PRN ×3 (04:07→16:36)
[2018-11-07] MEDS: Docusate CAP* 100 MG PO SCH ×4 (07:26→21:10)
[2018-11-07] MEDS: Penicillin G Potassium IV* 2,500,000 UNITS in NS 0.9% 100 ML* 100 ML IVPB SCH (07:27)
[2018-11-07 08:54] LABS: ABS Basophils 0.1 10^3/ul (0-0.2); ABS Eosinophils 0.1 10^3/ul (0-0.6); ABS Lymphocytes 2.6 10^3/ul (1.0-4.8); ABS Monocytes 0.9 10^3/ul (0-0.8); ABS Neutrophils 8.3 10^3/ul (1.5-7.7); Eosinophil % 0.6 %; Hematocrit 35 % (35-47); Lymphocyte % 21.4 %; Mean Corpuscular HGB Conc 35 g/dL (31-36); Mean Corpuscular Hemoglobin 31 pg (27-31); Mean Corpuscular Volume 91 fL (80-97); Mean Platelet Volume 9.8 fL (7.4-10.4); Nucleated Red Blood Cells % 0.1; Platelet Count 132 10^3/uL (150-450); Red Blood Count 3.83 10^6 /uL (3.70-4.87); Red Cell Distribution Width 14 % (10-15); White Blood Count 11.9 10^3/uL (3.5-10.8)
[2018-11-07] MEDS ORDERED: Ferrous Gluconate TAB* 324 MG TAB PO SCH (09:00)
[2018-11-07] MEDS: Sertraline* 100 MG TAB PO SCH (16:36)
[2018-11-08 09:25] VITALS: BP 129/72
[2018-11-08] MEDS: Sertraline* 100 MG TAB PO SCH (10:22)
[2018-11-08] MEDS: Docusate CAP* 100 MG PO SCH (10:23)
[2018-11-09] MEDS ORDERED: Sertraline* 50 MG TAB PO SCH (09:00)
== END 2018-11-08 13:00 | disposition home or self-care (01) | DRG 560 ==
LOC: MCHOBOUT 02:23 → MCHOB 08:53
PROVIDERS: ADMIT Midwife; ATTEND Midwife
PROC: 10E0XZZ Delivery of Products of Conception, External Approach (ICD-10-PCS; principal; 2018-11-06)
PROC: 10907ZC Drainage of Amniotic Fluid, Therapeutic from Products of Conception, Via Natural or Artificial Opening (ICD-10-PCS; 2018-11-06)
PROC: 0HQ9XZZ Repair Perineum Skin, External Approach (ICD-10-PCS; 2018-11-06)
DX: O99.824 Streptococcus B carrier state complicating childbirth (principal); Z37.0 Single live birth; O70.0 First degree perineal laceration during delivery; O99.344 Other mental disorders complicating childbirth; F32.9 Major depressive disorder, single episode, unspecified; Z3A.39 39 weeks gestation of pregnancy
CPT/HCPCS: 36415; 85025; 86850; 86900; 86901; A9270-GY; J2300; J2540; J2550

== ENCOUNTER 2018-11-30 05:59 | Emergency (ER) | payer OTHER ==
[2018-11-30] MEDS ORDERED: NS 0.9% 1000 ML** 1,000 ML IV ONE (06:29)
[2018-11-30] MEDS ORDERED: Acetaminophen TAB* 325 MG PO ONE (06:30)
--- NOTE | 2018-11-30 06:31 | ED ---
Abdominal Pain/Female - HPI Summary HPI Summary: Pt. is a 33 y.o female who presents to the ER for right sided abd. pain and fever. Pt. notes fever for about 3 days and then developed right sided pain last night. No cough, sob, cp, N/V, diarrhea, or urinary sxs. Pt. s/p uncomplicated vaginal delivery one month ago. No significant past medical hx. Pt. notes yesterday she was having urinary frequency and was rx keflex for suspected UTI. Pt. notes urinary sxs have since resolved. Sxs are moderate in severity. Movement makes sxs worse. Nothing makes sxs better. - History of Current Complaint Chief Complaint: EDAbdPain Stated Complaint: R SIDED ABD PAIN PER PT Time Seen by Provider: 11/30/18 06:12 Hx Obtained From: Patient Pain Intensity: 9 Allergies/Adverse Reactions: Allergies Allergy/AdvReac Type Severity Reaction Status Date / Time doxycycline Allergy Mild Rash And Verified 11/30/18 06:04 Itching Home Medications: Home Medications Cephalexin CAP* [Keflex 500 CAP*] 500 mg PO BID 11/30/18 [History Confirmed ] PMH/Surg Hx/FS Hx/Imm Hx Previously Healthy: Yes Endocrine/Hematology History: Denies: Hx Anticoagulant Therapy, Hx Blood Disorders, Hx Thyroid Disease, Hx Anemia, Hx Unexplained Bleeding Cardiovascular History: Denies: Hx Pacemaker/ICD History: Reports: Other Problems/Disorders - UTI; Lt ovarian cyst Sensory History: Psychiatric History: Reports: Hx Anxiety, Hx Depression, Hx Community Mental Health Tx, Hx Suicide Attempt Denies: Hx Panic Disorder, Hx of Violent Episodes Against Others, Hx Substance Abuse - Surgical History Surgery Procedure, Year, and Place: CYST REMOVED FROM LT [facility], NOSE SURGERY - Immunization History Date of Tetanus Vaccine: unk Date of Influenza Vaccine: fall 2017 Infectious Disease History: No Infectious Disease History: Denies: Traveled Outside the [place] in Last 30 Days - Family History Known Family History: Positive: Non-Contributory Negative: Hypertension, Diabetes - Social History Occupation: Employed Full-time Lives: With Family Alcohol Use: Occasionally Hx Substance Use: No Substance Use Type: Reports: None Hx Tobacco Use: No Smoking Status (MU): Never Smoked Tobacco Have You Smoked in the Last Year: No Review of Systems Positive: Fever, Chills Eyes: Negative ENT: Negative Cardiovascular: Negative Respiratory: Negative Positive: Abdominal Pain. Negative: Vomiting, Diarrhea, Nausea Genitourinary: Negative Musculoskeletal: Negative Skin: Negative Neurological: Negative All Other Systems Reviewed And Are Negative: Yes Physical Exam Triage Information Reviewed: Yes Vital Signs On Initial Exam: Initial Vitals Temp Pulse Resp BP Pulse Ox 100.3 F 103 14 127/79 97 11/30/18 06:02 11/30/18 06:02 11/30/18 06:02 11/30/18 06:02 11/30/18 06:02 Vital Signs Reviewed: Yes Appearance: Positive: Well-Appearing - Pt. lying in bed in NAD. Skin: Positive: Other - Skin dry and hot to touch. Head/Face: Positive: Normal Head/Face Inspection Eyes: Positive: Normal, EOMI Neck: Positive: Supple Respiratory/Lung Sounds: Positive: Clear to Auscultation, Breath Sounds Present Cardiovascular: Positive: Normal, RRR Abdomen Description: Positive: Other: - Abd. is soft with marked tenderness to RLQ with guarding. No RUQ pain. Mild CVA tenderness on right. Musculoskeletal: Positive: Normal, Strength/ROM Intact Neurological: Positive: Normal, Alert, Oriented to Person Place, Time Psychiatric: Positive: Affect/Mood Appropriate Diagnostics - Vital Signs Vital Signs Temp Pulse Resp BP Pulse Ox 11/30/18 06:02 100.3 F 103 14 127/79 97 - Laboratory Result Diagrams: 11/30/18 06:52 11/30/18 06:52 Lab Statement: Any lab studies that have been ordered have been reviewed, and results considered in the medical decision making process. Abdominal Pain Fem Course/Dx - Course Course Of Treatment: Pt. presenting with low grade fever and RLQ pain. WIll obtain labs and CT scan to r/o appy. CBC shows WBC of 11.7, CRP 97. U/A only shows RBCs. CT abd./pelvis per radiology: IMPRESSION: 1. NORMAL APPENDIX. 2. THERE IS A HETEROGENEOUSLY HYPOENHANCING LESION OF THE MIDPOLE THE RIGHT KIDNEY , WITH. MILD PERINEPHRIC INFLAMMATORY CHANGE. THE APPEARANCE IS SUGGESTIVE OF FOCAL. PYELONEPHRITIS, THOUGH RENAL PARENCHYMAL NEOPLASM IS WITHIN THE DIFFERENTIAL.. RECOMMEND. FOLLOW-UP UNTIL RESOLUTION. 3. LEFT NEPHROLITHIASIS WITHOUT HYDRONEPHROSIS. Give fever, flank/abd. pain, elevated CRP and pt.;s recent urinary sxs suspect pyelonephritis. Will give a dose of rocephin and tx with omnicef given breast feeding. Discussed possible mass with pt. She will f.u with pcp for further evaluation. To increase fluids. tylenol or motrin for pain and fever. To return to ER if sxs change or worsen. Pt. understands and agrees with plan. - Diagnoses Differential Diagnosis: Positive: Appendicitis, Gall Bladder Disease, Pelvic Inflammatory Disease, , Renal Colic, Urinary Tract Infection Provider Diagnoses: Pyelonephritis, Abdominal pain Discharge - Sign-Out/Discharge Documenting (check all that apply): Patient Departure Patient Received Moderate/Deep Sedation with Procedure: No - Discharge Plan Condition: Improved Disposition: HOME Prescriptions: ceFIXime [Cefixime] 400 mg PO BID #20 capsule Patient Education Materials: Kidney Infection (ED) Referrals: Bev Villa MD [Primary Care Provider] - Additional Instructions: Follow up with PCP within one week for recheck and for further evaluation of potential kidney mass Start new antibiotic today and stop keflex Increase fluids Tylenol or Motrin for pain and fever as directed Return to ER if symptoms change or worsen - Billing Disposition and Condition Condition: IMPROVED Disposition: Home
[2018-11-30 06:44] LABS: Urine Appearance Clear; Urine Bacteria Absent (Absent); Urine Bilirubin Negative (Negative); Urine Blood 3+ (Negative); Urine Color Yellow; Urine Glucose Negative (Negative); Urine Ketones Negative (Negative); Urine Nitrite Negative (Negative); Urine Protein Negative (Negative); Urine Red Blood Cell 2+(6-10/hpf) (Absent); Urine Specific Gravity 1.013 (1.010-1.030); Urine Urobilinogen Negative (Negative); Urine White Blood Cell Absent (Absent)
[2018-11-30 07:01] LABS: ABS Lymphocytes 1.5 10^3/ul (1.0-4.8); ABS Neutrophils 9.2 10^3/ul (1.5-7.7); Eosinophil % 0.2 %; Hematocrit 39 % (35-47); Hemoglobin 13.2 g/dL (12.0-16.0); Lymphocyte % 13.2 %; Mean Corpuscular HGB Conc 34 g/dL (31-36); Mean Corpuscular Hemoglobin 31 pg (27-31); Mean Corpuscular Volume 91 fL (80-97); Mean Platelet Volume 9.2 fL (7.4-10.4); Nucleated Red Blood Cells % 0.1; Platelet Count 189 10^3/uL (150-450); Red Blood Count 4.27 10^6 /uL (3.70-4.87); Red Cell Distribution Width 13 % (10-15); White Blood Count 11.7 10^3/uL (3.5-10.8)
[2018-11-30 07:20] LABS: Albumin 3.8 g/dL (3.2-5.2); Albumin/Globulin Ratio 1.3 (1-3); C Reactive Protein 97.17 mg/L (<8.01); Calcium 7.9 mg/dL (8.6-10.3); EGFR African American 161.8 (>60); EGFR Non-African American 133.7 (>60); Globulin 2.9 g/dL (2-4); Potassium 4.1 mmol/L (3.5-5.0); Total Bilirubin 0.5 mg/dL (0.2-1.0); Total Protein 6.7 g/dL (6.4-8.9)
[2018-11-30 07:26] LABS: HCG Pregnancy 1.54 mIU/mL
[2018-11-30] MEDS ORDERED: Iohexol 300* (CONTRAST) 10 ML SDV IV ONE (09:02)
[2018-11-30] MEDS ORDERED: cefTRIAXone(*) 1 GM in NS 0.9% 50 ML* 50 ML IVPB ONE (09:47)
[2018-11-30 10:54] VITALS: BP 113/73
== END 2018-11-30 10:53 | disposition home or self-care (01) ==
LOC: ED 05:59
DX: N12 Tubulo-interstitial nephritis, not specified as acute or chronic (principal); N20.0 Calculus of kidney; F41.9 Anxiety disorder, unspecified; F32.9 Major depressive disorder, single episode, unspecified; Z88.1 Allergy status to other antibiotic agents
CPT/HCPCS: 36415; 74177; 80053; 81003; 81015; 83690; 84702; 85025; 86140; 87086; 96361; 96365; 99283; A9270-GY; J0696; Q9967

== ENCOUNTER 2019-01-27 22:45 | Emergency (ER) | payer OTHER ==
[2019-01-27] MEDS ORDERED: Acetaminophen TAB* 325 MG PO ONE (22:57)
[2019-01-27] MEDS ORDERED: NS 0.9% 1000 ML** 1,000 ML IV ONE (23:06)
[2019-01-27] MEDS ORDERED: Ondansetron INJ* 2 MG/ML VIAL IV ONE (23:06)
--- NOTE | 2019-01-27 23:09 | ED ---
HPI Febrile Illness - HPI Summary HPI Summary: 33 year old female presents with fever today. States that she's been having right breast pain today. She has history of mastitis. States it feels similar. She hasn't taking anything for her fever recently. She admits to nausea. States she's had no appetite. No cough. No chest pain or shortness of breath. No abdominal pain. No vomiting. No urinary symptoms. No sore throat. - History of Current Complaint Chief Complaint: EDFever Time Seen by Provider: 01/27/19 22:54 Pain Intensity: 6 - Additional Pertinent History Primary Care Physician: GEOVANNY - Allergy/Home Medications Allergies/Adverse Reactions: Allergies Allergy/AdvReac Type Severity Reaction Status Date / Time doxycycline Allergy Mild Rash And Verified 01/27/19 22:52 Itching PMH/Surg Hx/FS Hx/Imm Hx Endocrine/Hematology History: Denies: Hx Anticoagulant Therapy, Hx Blood Disorders, Hx Diabetes, Hx Thyroid Disease, Hx Anemia, Hx Unexplained Bleeding Cardiovascular History: Denies: Hx Hypertension, Hx Pacemaker/ICD History: Reports: Other Problems/Disorders - UTI; Lt ovarian cyst Denies: Hx Renal Disease Sensory History: Psychiatric History: Reports: Hx Anxiety, Hx Depression, Hx Community Mental Health Tx, Hx Suicide Attempt Denies: Hx Panic Disorder, Hx of Violent Episodes Against Others, Hx Substance Abuse - Surgical History Surgery Procedure, Year, and Place: CYST REMOVED FROM LT [facility], NOSE SURGERY - Immunization History Date of Tetanus Vaccine: unk Date of Influenza Vaccine: fall 2017 Infectious Disease History: No Infectious Disease History: Denies: Traveled Outside the [place] in Last 30 Days - Family History Known Family History: Positive: Non-Contributory Negative: Hypertension, Diabetes - Social History Alcohol Use: Occasionally Hx Substance Use: No Substance Use Type: Reports: None Hx Tobacco Use: No Smoking Status (MU): Never Smoked Tobacco Have You Smoked in the Last Year: No Review of Systems Positive: Fever, Chills Positive: Nausea Positive: Rash All Other Systems Reviewed And Are Negative: Yes Physical Exam Triage Information Reviewed: Yes Vital Signs On Initial Exam: Initial Vitals Temp Pulse Resp BP Pulse Ox 102.4 F 130 16 131/95 97 01/27/19 22:45 01/27/19 22:45 01/27/19 22:45 01/27/19 22:45 01/27/19 22:45 Vital Signs Reviewed: Yes Appearance: Positive: Well-Appearing Skin: Positive: Warm, Dry, Other - erythema to right breast that is warm to touch, no abscess felt Head/Face: Positive: Normal Head/Face Inspection Eyes: Positive: Normal, Conjunctiva Clear ENT: Positive: Pharynx normal Respiratory/Lung Sounds: Positive: Clear to Auscultation, Breath Sounds Present Cardiovascular: Positive: Normal, RRR Abdomen Description: Positive: Nontender, Soft Bowel Sounds: Positive: Present Musculoskeletal: Positive: Normal Neurological: Positive: Normal Psychiatric: Positive: Normal Procedures - Sedation Patient Received Moderate/Deep Sedation with Procedure: No Diagnostics - Vital Signs Vital Signs Temp Pulse Resp BP Pulse Ox 01/27/19 22:45 102.4 F 130 16 131/95 97 - Laboratory Result Diagrams: 01/27/19 23:27 01/27/19 23:27 Lab Statement: Any lab studies that have been ordered have been reviewed, and results considered in the medical decision making process. Re-Evaluation - Re-Evaluation First Eval Re-Evaluation Time: 00:04 Change: Improved Comment: feeling better after fluids Course/Dx - Course Course Of Treatment: 33 year old female presents with fever today. States that she's been having right breast pain today. She has history of mastitis. States it feels similar. She hasn't taking anything for her fever recently. She admits to nausea. States she's had no appetite. No cough. No chest pain or shortness of breath. No abdominal pain. No vomiting. No urinary symptoms. No sore throat. On exam patient appears ill but nontoxic. Lungs clear to auscultation. erythema that is that is warm to touch with tenderness of right breast with no abscess felt. We'll treat with dicloxacillin. wbc 16. lactic normal. Gave fluids and Tylenol feeling better. Told to keep pumping and follow up with OB or primary. Patient understands and agrees with plan. - Febrile Illness Differential Diagnoses: Pneumonia, Viremia, Other: - masititis - Diagnoses Provider Diagnoses: Mastitis Discharge ED - Sign-Out/Discharge Documenting (check all that apply): Patient Departure - Discharge Plan Condition: Good Disposition: HOME Prescriptions: Dicloxacillin CAP* [Dynapen CAP*] 500 mg PO QID #39 cap Patient Education Materials: Mastitis (ED) Forms: *School Release Referrals: Bev Villa MD [Primary Care Provider] - Additional Instructions: continue pumping apply ice take tyenlol or ibuprofen every 6 hours for fever or pain Take dicloxacillin four times a day for 10 days Follow up with primary or ob Return to ED if develop any new or worsening symptoms - Billing Disposition and Condition Condition: GOOD Disposition: Home
[2019-01-27] MEDS ORDERED: Dicloxacillin CAP* 250 MG PO ONE (23:31)
--- OUTSIDE RECORDS SUMMARY | 2019-01-27 23:34 | XMS REPORT | Summary of Care ---
:1985 Author Organization [facility] Address [address] [facility] [place] [address] Care Team Providers Name Role Phone Bev Villa MD Primary Care Provider Reason for Referral Refer to Department Only (Routine) Status Reason Specialty Diagnoses / Referred By Referred To Procedures Contact Contact Pending Review UROLOGY / Diagnoses Renal lesion Daisy Urologlisa Pablo MD [address] [place] [address] Scheduling Instructions Please indicate below in the Questions section the side affected in the diagnosis. To assist the urology dept. in serving your pt please see the Investigation List needs detailed below: (click magnifying glass on left corner of this box to enlarge for ease of reviewing list) All imagining studies done outside [facility] need to be sent to urology 1 week prior to patient being seen. Hematuria: Microscopic: 2 documented positive urine analysis for RBCs Renal CT with & Without IV contrast Urine cytology Gross: Renal CT with & Without IV contrast Urine cytology Elevated PSA: Most recent PSA results PSA History if available Benign Prostatic Hyperplasia (BPH): Instruct the patient to come with full bladder - for Uroflowmetry and post voiding residual measurement testing at urology appt. Renal stone disease: Renal CT without IV contrast Renal Mass or complex cyst on Ultrasound: Renal CT with & Without IV contrast Scrotal pain or mass: Scrotal ultrasound Erectile Dysfunction: Lipid profile Hemoglobin A1c Recurrent Urinary tract infection: Most recent culture results Urine analysis Children with UTI or Pylenephritis: Most recent culture results Renal Ultrasound Reason for Visit Reason Comments Transitional Care Management from [facility] 10 days ago with left lower side pain. [facility] kiddeny infection pt stated they also found a mass on her kiddeny Encounter Details Date Type Department Care Team Description 12/08/2018 Office Visit Grace Villa, Renal lesion (Primary Practice MD Bev Dx) [address] [place] [address] [place] [address] [phone] Allergies Active Allergy Reactions Severity Noted Date Comments Doxycycline Rash 06/18/2013 documented as of this encounter (statuses as of 12/08/2018) Medications Medication Sig Dispensed Refills Start Date End Date Status sertraline TAKE 1 & 1/2 45 Tab 5 07/14/2018 Active (ZOLOFT) 100 MG (ONE & Oral Tab ONE-HALF) TABLETS BY MOUTH ONCE DAILY cephalexin Take 250 mg by 0 Active (KEFLEX) 250 MG mouth TWICE Oral Cap DAILY. PRENAT VIT-FE Take 1 Tab by 0 Active FUM-FA-FISH OIL PO mouth. MV-Min-Fe Take by 0 12/08/2018 Discontinued Fum-FA-DHA mouth. ( 1 PO) foliC acid 1 MG Take 1 mg by 0 12/08/2018 Discontinued Oral Tab mouth DAILY. Doxylamine-Pyridox Take 2 Tabs by 0 12/08/2018 Discontinued ine (DICLEGIS PO) mouth DAILY. Ascorbic Acid Take 1 Tab by 0 12/08/2018 Discontinued (VITAMIN C PO) mouth DAILY. 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 documented as of this encounter (statuses as of 12/08/2018) Immunizations Name Administration Dates Next Due Human Papillomavirus 08/25/2013 Influenza (IM) Preservative Free 05/26/2017, 02/14/2015, 06/28/2013 Influenza (IM) W/Pres 05/20/2016, 03/03/2014 TDAP Vaccine 08/25/2013 Tuberculin Skin Test 05/17/2013 documented as of this encounter Social History Tobacco Use Types Packs/Day Years Used Date Never Smoker Smokeless Tobacco: Never Used Alcohol Use Drinks/Week oz/Week Comments Not Currently 7 Glasses of wine 7.0 Sex Assigned at Date Recorded Not on file Job Start Date Occupation Industry Not on file Not on file Not on file Travel History Travel Start Travel End No recent travel history available. documented as of this encounter Last Filed Vital Signs Vital Sign Reading Time Taken Comments Blood Pressure 108/64 12/08/2018 9:20 AM EDT Pulse 68 12/08/2018 9:20 AM EDT Temperature 37.2 12/08/2018 9:20 AM C (98.9 EDT F) Respiratory Rate - - Oxygen Saturation 99% 12/08/2018 9:20 AM EDT Inhaled Oxygen Concentration - - Weight 64.3 kg (141 lb 11.2 oz) 12/08/2018 9:20 AM EDT Height 170.2 cm (5' 7") 12/08/2018 9:20 AM EDT Body Mass Index 22.19 12/08/2018 9:20 AM EDT documented in this encounter Patient Instructions Patient InstructionsBev Villa MD - 12/08/2018 8:20 AM EDT1. Schedule appointment with urologist documented in this encounter Progress Notes Bev Villa MD - 12/08/2018 8:20 AM EDT Patient: Ruth Kingston Date of Service: 12/08/2018 Subjective: Ruth Kingston is a 33-y.o. female who presents for Chief Complaint Patient presents with Transitional Care Management from [facility] 10 days ago with left lower side pain. [facility] kiddeny infection pt stated they also found a mass on her kiddeny TCM Statement. Review of the ER evaluation: The date of evaluation: 11/30/18 The discharge diagnosis was Pyelonephritis. I reviewed the discharge summary, discharge instructions, and pertinent additional documentation obtained during hospitalization. I reconciled the medications. I also reviewed the Transition of Care documentation done by staff. Patient presented to [facility] ER with complains of high fever, R sided abdominal pain , urinary frequencyStarted 3 days prior Patient started Keflex a day before ER evaluation Evaluation at the ER showed CMP - normal, CBC - slightly elevated WBC, no shift. CRP - 97.17 CT abdomen and pelvis - hypo enhancing lesion in mid R kidney : focal pyelonephritis vs neoplasm. Urine culture - no growth Coordination of care. (delete one and this phrase) - I am satisfied that appropriate referrals are in place to deal with the problems identified during hospitalization, and that the patient has adequate community resources and support in place. I confirmed the patient's understanding of the diagnosis and plan of care. The current and discharge medications were reconciled by me, today The source document was Electronic summary of care Patient is still on Keflex. Resolved fever and abdominal pain Past Medical History: Diagnosis Date Depression Deviated nasal septum 2006, 2007 corrected surgicaly Endometriosis LGSIL (low grade squamous intraepithelial lesion) on Pap smear 02/2013 Positive PPD Outpatient Medications as of 12/08/2018 Medication Sig Dispense Refill sertraline (ZOLOFT) 100 MG Oral Tab TAKE 1 & 1/2 (ONE & ONE-HALF ) TABLETS BY MOUTH ONCE DAILY 45 Tab 5 No current facility-administered medications on file as of 12/08/2018. Allergies Allergen Reactions Doxycycline Rash Review of Systems: All remaining review of systems was negative. Objective: BP 108/64 (BP Location: Left arm, Patient Position: Sitting) | Pulse 68 | Temp 98.9 F (37.2 C) | Ht 5' 7" (1.702 m) | Wt 141 lb 11.2 oz (64.3 kg ) | LMP 02/05/2018 | SpO2 99% | ? Yes | BMI 22.19 kg/m GENERAL: alert, no distress THROAT: lips, mucosa, and tongue normal: teeth and gums normal NECK: supple, symmetrical, trachea midline LUNGS: clear to auscultation bilaterally HEART: regular rate and rhythm, S1, S2 normal, no murmur, click, rub or gallop ABDOMEN: soft, non-tender. Bowel sounds normal. No masses, no organomegaly ICD-9-CM ICD-10-CM 1. Renal lesion Focal pyelonephritis vs neoplasm 593.9 N28.9 REFER TO UROLOGY Patient Instructions 1. Schedule appointment with urologist Author: Bev Villa MD documented in this encounter Plan of Treatment Date Type Specialty Care Team Description 12/18/2018 Office Visit Urology Geovani Finnegan MD [address] [address] [phone] Name Type Priority Associated Diagnoses Order Schedule REFER TO UROLOGY Referral Routine Renal lesion Expected: 12/08/2018, Expires: 12/09/2019 Health Maintenance Due Date Last Done Comments HPV IMMUNIZATION SERIES (2 - 09/22/2013 08/25/2013 Female 3-dose series) PAP SMEAR 03/20/2018 03/20/2015, 08/25/2013, 02/24/2013 INFLUENZA VACCINE (#1) 2018 05/26/2017, 05/20/2016, 02/14/2015, Additional history exists DEPRESSION SCREENING 07/28/2019 07/27/2018 MENINGOCOCCAL VACCINE IMM Aged Out No longer eligible based on patient's age to complete this topic PNEUMOCOCCAL 0-64 YRS Aged Out No longer eligible based on patient's age to complete this topic documented as of this encounter Goals Goal Patient Goal Associated Recent Patient-Stated? Author Type Problems Progress Depression Depression No santos Villa (PHQ-9) Bev total score < 5 Note: This is an individualized treatment (depression) goal for Ruth Kingston: Displayed above is your goal for a depression screening (PHQ-9) score that would indicate good control of your depression. Keep a regular sleep schedule Lifestyle No Bev Villa MD Note: This is an individualized lifestyle goal for Ruth Kingston: Please maintain a regular sleep schedule. This may help with some symptoms of depression. Take all prescribed medications as Self-management No Bev Villa MD directed Note: This is an individualized self-management goal for Ruth Kingston: Please take all prescribed medications as directed. 1. Do not skip doses. If you cannot afford your medications, talk with your doctor. 2. Use a pill reminder system such as a pill box if needed. Your pharmacist can help you with this. 3. Contact your Pharmacy 5 days before your medication runs out. If you cannot take your medications for any reasons, talk with your doctor. 4. Please bring all of your medication bottles and inhalers (or a list of all your medications/inhalers) with you to every visit. Potential barriers to meeting all of your care plan goals will continue to be addressed on an ongoing basis. documented as of this encounter Results Not on filedocumented in this encounter Visit Diagnoses Diagnosis Renal lesion - Primary Unspecified disorder of kidney and ureter documented in this encounter Guarantor Name Account Type Relation to Date of Phone Billing Patient Address Ruth Kingston Personal/Family 1985 [address] [phone] [place], [place] (Work) [id number] documented as of this encounter
--- OUTSIDE RECORDS SUMMARY | 2019-01-27 23:34 | XMS REPORT | Summary of Care ---
:1985 Author Organization [facility] Address [address] [address] Care Team Providers Name Role Phone Bev Villa MD Primary Care Provider Reason for Referral MRI/CAT/PET Scan (Routine) Status Reason Specialty Diagnoses / Referred By Referred To Procedures Contact Contact Pending Review Diagnoses Renal lesion Geovani Finnegan, Procedures CT ABDOMEN WITHOUT AND WITH IV CONTRAST [address] [address] Reason for Visit Reason Comments New Patient Patient presents today for renal lesion. Refer to Department Only (Routine) Status Reason Specialty Diagnoses / Referred By Referred To Procedures Contact Contact Pending Review UROLOGY / Diagnoses Renal lesion Debi Villa MD [address] [place] [address] Encounter Details Date Type Department Care Team Description 12/18/2018 Office Visit [facility] Anthony Finnegant, Renal lesion (Primary 1 Veronika Davis MD Dx) [place] [id number] [address] [phone] [place] [place] [address] Allergies Active Allergy Reactions Severity Noted Date Comments Doxycycline Rash 06/18/2013 documented as of this encounter (statuses as of 12/18/2018) Medications Medication Sig Dispensed Refills Start Date End Date Status sertraline TAKE 1 & /2 45 Tab 5 07/14/2018 Active (ZOLOFT) 100 MG (ONE & Oral Tab ONE-HALF) TABLETS BY MOUTH ONCE DAILY PRENAT VIT-FE Take 1 Tab by 0 Active FUM-FA-FISH OIL PO mouth. cephalexin Take 250 mg by 0 12/18/2018 Discontinued (KEFLEX) 250 MG mouth TWICE Oral Cap DAILY. 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 documented as of this encounter (statuses as of 12/18/2018) Immunizations Name Administration Dates Next Due Human [...] Sign Reading Time Taken Comments Blood Pressure 110/78 12/18/2018 1:15 PM EDT Pulse 83 12/18/2018 1:15 PM EDT Temperature 36.4 12/18/2018 1:15 PM EDT C (97.5 F) Respiratory Rate - - Oxygen Saturation 99% 12/18/2018 1:15 PM EDT Inhaled Oxygen Concentration - - Weight 62.6 kg (138 lb) 12/18/2018 1:15 PM EDT Height 162.6 cm (5' 4") 12/18/2018 1:15 PM EDT Body Mass Index 23.69 12/18/2018 1:15 PM EDT documented in this encounter Progress Notes Geovani Finnegan MD - 12/18/2018 1:00 PM EDT PATIENT: Ruth Kingston : 1985 DATE OF SERVICE: 12/18/2018 REFERRING PRACTITIONER: Bev Villa PRIMARY CARE PROVIDER: Bev Villa CHIEF COMPLAINT: Chief Complaint Patient presents with New Patient Patient presents today for renal lesion. HISTORY OF PRESENT ILLNESS: Ruth Kingston is a 33-y.o. female patient new to me She had right sided pain and fever CT has shown a 1.8 cms focal right renal lesion and suggested differential as tumor. Patient is veryworried. She is a non-smoker No family history of urological malignancies Urine dip negative blood today Past Medical History: Diagnosis Date Depression Deviated nasal septum 2006, 2007 corrected surgicaly Endometriosis LGSIL (low grade squamous intraepithelial lesion) on Pap smear 02/2013 Positive PPD Past Surgical History: Procedure Laterality Date [place] COLPOSCOPY,CERVIX W/ADJ VAGINA, CURETTAG SEPTOPLASTY 2006 Performed in [place] SINUSOTOMY NOS 2007 septoplasty TONSILLECTOMY & ADENOIDECTOMY Bilateral Family History Problem Relation Age of Onset Stroke Mother Hypertension Mother Current Outpatient Medications Medication Sig PRENAT VIT-FE FUM-FA-FISH OIL PO Take 1 Tab by mouth. sertraline (ZOLOFT) 100 MG Oral Tab TAKE 1 & 1/2 (ONE & ONE-HALF ) TABLETS BY MOUTH ONCE DAILY No current facility-administered medications for this visit. Allergies Allergen Reactions Doxycycline Rash Social History Socioeconomic History Marital status: Spouse name: Not on file Number of children: Not on file Years of education: Not on file Highest education level: Not on file Occupational History Not on file Social Needs Financial resource strain: Not on file Food insecurity: Worry: Not on file Inability: Not on file Transportation needs: Medical: Not on file Non-medical: Not on file Tobacco Use Smoking status: Never Smoker Smokeless tobacco: Never Used Substance and Sexual Activity Alcohol use: Not Currently Alcohol/week: 7.0 standard drinks Types: 7 Glasses of wine per week Drug use: No Sexual activity: Yes Partners: Male control/protection: Abstinence Lifestyle Physical activity: Days per week: Not on file Minutes per session: Not on file Stress: Not on file Relationships Social connections: Talks on phone: Not on file Gets together: Not on file Attends [employer] service: Not on file Active member of club or organization: Not on file Attends meetings of clubs or organizations: Not on file Relationship status: Not on file Intimate partner violence: Fear of current or ex partner: Not on file Emotionally abused: Not on file Physically abused: Not on file Forced sexual activity: Not on file Other Topics Concern Not on file Social History Narrative Not on file REVIEW OF SYSTEMS: A comprehensive review of systems was negative except for as noted in the history of present illness/subjective. PHYSICAL EXAMINATION: VITALS: BP 110/78 (BP Location: Left arm, Patient Position: Sitting) | Pulse 83 | Temp 97.5 F(36.4 C) (Temporal) | Ht 5' 4" (1.626 m) | Wt 138 lb (62.6 kg) | SpO2 99% | BMI 23.69 kg/m Body mass index is 23.69 kg/m. GENERAL: healthy, well nourished, in no distress. EYES: Pupils are equil and reactive to light, conjunctiva normal HEENT: Right and left ears normal. NECK: no jugular venous distention. LUNGS: Effort normal . HEART: rate normal. ABDOMEN: Soft, nontender, non distended, no masses felt, no hepatosplenomegaly. GENITOURINARY: No loin tenderness . RECTAL: exam deferred. SKIN: normal, no rashes or abnormalities noted. NEUROLOGICAL: alert and oriented x3. PSYCHOLOGICAL: Mood and affect normal. Behavior is normal. IMPRESSION: ICD-9-CM ICD-10-CM 1. Renal lesion 593.9 N28.9 REFER TO UROLOGY URINE DIP CLINITEK (AMB POCT) During this visit, I reviewed the relevant imaging, pathology reports, laboratory reports, and previous clinical notes. Additional counseling and preparation time (which represents > 50 % of total visit time) was necessary for data gathering, reviewing studies and discussing options, in excess of interviewing the patient and/or family members. This time was used to discuss the the complex nature of the problem, various treatment options available and the expected outcomes of each to the patient/family's satisfaction. I have reassured this patient that her clinical picture was one of right-sided pyelonephritis as shehad fever and right loin pain. She felt better after she had antibiotics. My personal feeling is the lesion shown on the CT is pyelonephritis focal in nature and not a tumor. However to reassure herand us , it is best to carry out a repeat CT Abdo with and without contrast in about 3 weeks from now and I will see her soon after. All questions were answered. Author: Geovani Finnegan MD 12/18/2018 13:48 documented in this encounter Plan of Treatment Date Type Specialty Care Team Description 12/21/2018 Office Visit Family Practice Bev Villa MD [address] [place] [address] [phone] Name Type Priority Associated Diagnoses Order Schedule CT ABDOMEN WITHOUT AND Imaging Routine Renal lesion Expected: 12/18/2018, WITH IV CONTRAST Expires: 12/18/2019 Health Maintenance Due Date Last Done Comments [...] Author Type Problems Progress Depression Depression No Daisy, santos (PHQ-9) Bev, total score < 5 Note: This is an individualized treatment (depression) goal for Ruth Kingston: Displayed above is your goal for a depression screening (PHQ-9) score that would indicate good control of your depression. Keep a regular sleep schedule Lifestyle No Bev Villa MD Note: This is an individualized lifestyle goal for Ruth Patek: Please maintain a regular sleep schedule. This may help with some symptoms of depression. Take all prescribed medications as Self-management No Bev Villa MD directed Note: This is an individualized self-management goal for Ruth Sparrowcristal: Please take all prescribed medications as directed. [...] ongoing basis. documented as of this encounter Procedures Procedure Name Priority Date/Time Associated Diagnosis Comments URINE DIP CLINITEK Routine 12/18/2018 Renal lesion Results for this (AMB POCT) procedure are in the results section. documented in this encounter Results URINE DIP CLINITEK (AMB POCT) (12/18/2018) URINE GLUCOSE (POCT) Negative Negative mg/dl [facility] POCT URINE BILIRUBIN Negative Negative [facility] (POCT) POCT Urine Ketones (POCT) 15 (A) Negative [facility] POCT URINE SPECIFIC 1.025 1.005 - 1.030 [facility] GRAVITY (POCT) POCT URINE BLOOD (POCT) Negative Negative [facility] POCT URINE PH (POCT) 5.5 5.0 - 8.0 [facility] POCT URINE PROTEIN (POCT) Negative Negative mg/dl [facility] POCT URINE UROBILINOGEN 0.2 0.2 - 1.0 mg/dl [facility] (POCT) POCT URINE NITRITES (POCT) Negative Negative [facility] POCT URINE LEUKOCYTES Trace (A) Negative Cells/uL [facility] (POCT) POCT Specimen Urine Performing Organization Address City/State/Zipcode Phone Number [facility] [address] [address] documented in this encounter Visit Diagnoses Diagnosis Renal lesion - Primary Unspecified disorder of kidney and ureter documented in this encounter Guarantor Name Account Type Relation to Date of Phone Billing Patient Address Ruth Kingston Y Personal/Family 1985 [address] [phone] [place], [place] (Work) [address] documented as of this encounter
--- OUTSIDE RECORDS SUMMARY | 2019-01-27 23:34 | XMS REPORT | Summary of Care ---
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 Needs MMR titres. Encounter Details Date Type Department Care Team Description 12/23/2018 Office Visit [place] [facility], Encounter for Practice DIRECTOR OF [employer]PORATE [employer]ATEGY completion of form [address] [place] [address] RD with patient ([place] [address] [place] [address] Dx) [phone] Allergies Active Allergy Reactions Severity Noted Date Comments Doxycycline Rash 06/18/2013 documented as of this encounter (statuses as of 12/23/2018) Medications Medication Sig Dispensed Refills Start Date End Date Status sertraline (ZOLOFT) TAKE 1 & 1/2 (ONE 45 Tab 5 07/14/2018 Active 100 MG Oral Tab & ONE-HALF) TABLETS BY MOUTH ONCE DAILY PRENAT VIT-FE Take 1 Tab by 0 Active FUM-FA-FISH OIL PO mouth. 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 documented as of this encounter (statuses as of 12/23/2018) Immunizations Name Administration Dates Next Due Human [...] Sign Reading Time Taken Comments Blood Pressure 128/62 12/23/2018 9:32 AM EDT Pulse 86 12/23/2018 9:32 AM EDT Temperature - - Respiratory Rate - - Oxygen Saturation 98% 12/23/2018 9:32 AM EDT Inhaled Oxygen Concentration - - Weight 63 kg (139 lb) 12/23/2018 9:32 AM EDT Height 170.2 cm (5' 7") 12/23/2018 9:32 AM EDT Body Mass Index 21.77 12/23/2018 9:32 AM EDT documented in this encounter Patient Instructions Patient InstructionsIsa Schmidt FNP - 12/23/2018 9:40 AM EDTFollow up as needed documented in this encounter Progress Notes Isa Schmidt FNP - 12/23/2018 9:40 AM EDTPt here for form completion - needs MMR titers verified for 3 Nursing program - All titers show immunity. From completed and copies of labs given to pt for her records documented in this encounter Plan of Treatment Date Type Specialty Care Team Description 12/24/2018 Ancillary Procedure Radiology 01/06/2019 Office Visit Urology Geovani Finnegan MD [address] [address] Health Maintenance Due Date Last Done Comments [...] filedocumented in this encounter Visit Diagnoses Diagnosis Encounter for completion of form with patient - Primary documented in this encounter Guarantor Name Account Type Relation to Date of Phone Billing Patient Address Ruth Kingston Personal/Family 1985 [address] [phone] [place], [place] (Work) [address] documented as of this encounter
[2019-01-27 23:41] LABS: ABS Basophils 0.1 10^3/ul (0-0.2); ABS Eosinophils 0.1 10^3/ul (0-0.6); ABS Lymphocytes 1.2 10^3/ul (1.0-4.8); ABS Monocytes 0.7 10^3/ul (0-0.8); ABS Neutrophils 14.4 10^3/ul (1.5-7.7); Eosinophil % 0.4 %; Hematocrit 37 % (35-47); Hemoglobin 12.3 g/dL (12.0-16.0); Lymphocyte % 7.1 %; Mean Corpuscular HGB Conc 33 g/dL (31-36); Mean Corpuscular Hemoglobin 29 pg (27-31); Mean Corpuscular Volume 87 fL (80-97); Mean Platelet Volume 8.7 fL (7.4-10.4); Platelet Count 178 10^3/uL (150-450); Red Blood Count 4.26 10^6 /uL (3.70-4.87); Red Cell Distribution Width 14 % (10-15); White Blood Count 16.4 10^3/uL (3.5-10.8)
[2019-01-27] MEDS ORDERED: Ibuprofen TAB* 800 MG PO ONE (23:45)
[2019-01-27 23:59] LABS: Albumin 3.8 g/dL (3.2-5.2); Albumin/Globulin Ratio 1.5 (1-3); BUN/Creatinine Ratio 24.6 (8-20); Calcium 8.5 mg/dL (8.6-10.3); EGFR African American 137.5 (>60); EGFR Non-African American 113.7 (>60); Globulin 2.6 g/dL (2-4); Potassium 3.5 mmol/L (3.5-5.0); Total Bilirubin 0.4 mg/dL (0.2-1.0); Total Protein 6.4 g/dL (6.4-8.9)
[2019-01-28 00:22] VITALS: BP 116/70
== END 2019-01-28 00:15 | disposition home or self-care (01) ==
LOC: ED 22:45
DX: N61.0 Mastitis without abscess (principal); Z88.1 Allergy status to other antibiotic agents; F41.9 Anxiety disorder, unspecified; F32.9 Major depressive disorder, single episode, unspecified
CPT/HCPCS: 36415; 80053; 83605; 85025; 87040; 96361; 96374; 99282; A9270-GY; J2405

== ENCOUNTER 2019-08-01 09:25 | Emergency (ER) | payer OTHER ==
--- OUTSIDE RECORDS SUMMARY | 2019-08-01 09:58 | XMS REPORT | Summary of Care ---
:1985 Author Organization [facility] Address [address] [place] [address] Care Team Providers Name Role Phone Yulietzeferino Bev Primary Care Provider Reason for Visit Reason Comments Dizziness started two months on and off, started this morning this episode, nausea, lack of appetite Encounter Details Date Type Department Care Team Description 06/17/2019 Office Visit [facility] Mariza Bishop FNP-C Dizziness (Primary Dx); Practice [address] Vertigo; [address] [place] [address] Upper respiratory [place], [place] [address] [phone] Allergies Active Allergy Reactions Severity Noted Date Comments Doxycycline Rash 06/18/2013 documented as of this encounter (statuses as of 06/17/2019) Medications Medication Sig Dispensed Refills Start Date End Date Status PRENAT VIT-FE Take 1 Tab 0 Active FUM-FA-FISH OIL PO by mouth. sertraline (ZOLOFT) TAKE 1 & 1/2 45 Tab 5 01/18/2019 Active 100 MG Oral Tab (ONE & ONE-HALF) TABLETS BY MOUTH ONCE DAILY meclizine Take 0.5 60 Tab 0 04/30/2019 Active (ANTIVERT) 25 MG Tabs by Oral Tab mouth THREE TIMES DAILY NEEDED for dizziness/ve rtigo. Fexofenadine HCl Take by 0 Active (BRITTANY PO) mouth. fluticasone [place] 2 1 Bottle 0 06/17/2019 Active (FLONASE) 50 Sprays in MCG/ACT Nasal nose DAILY. Suspension hydrocortisone 1 Appl by 1 Tube 1 02/22/2019 Discontinued (HYTONE) 2.5 % Topical 0 (Therapy Apply externally route TWICE Completed) Cream DAILY. 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 documented as of this encounter (statuses as of 06/17/2019) Immunizations Name Administration Dates Next Due Human Papillomavirus 08/25/2013 Influenza (IM) Preservative Free 02/19/2019, 05/26/2017, 02/14/2015, 06/28/2013 Influenza (IM) W/Pres 05/20/2016, 03/03/2014 TDAP Vaccine 08/25/2013 Tuberculin Skin Test 05/17/2013 documented as of this encounter Social History Tobacco Use Types Packs/Day Years Used Date Never Smoker Smokeless Tobacco: Never Used Alcohol Use Drinks/Week oz/Week Comments Not Currently 7 Glasses of wine 7.0 Sex Assigned at Date Recorded Not on file documented as of this encounter Last Filed Vital Signs Vital Sign Reading Time Taken Comments Blood Pressure 120/70 06/17/2019 2:47 PM EST Pulse 74 06/17/2019 2:47 PM EST Temperature 36.4 06/17/2019 2:47 PM C (97.5 EST F) Respiratory Rate 20 06/17/2019 2:47 PM EST Oxygen Saturation 99% 06/17/2019 2:47 PM EST Inhaled Oxygen Concentration - - Weight 67.9 kg (149 lb 12.8 oz) 06/17/2019 2:47 PM EST Height 170.2 cm (5' 7") 06/17/2019 2:47 PM EST Body Mass Index 23.46 06/17/2019 2:47 PM EST documented in this encounter Patient Instructions Patient InstructionsMariza Choudhury FNP-C - 06/17/2019 3:00 PM ESTPatient Education Vestibular Exercises About this topic A condition called benign paroxysmal positional vertigo, or BPPV, can cause dizziness. Inside of your inner ear, you have fluid. Small crystals float in the fluid. With this problem, the crystals get stuck in the inner ear. When you move your head, you may have more signs. Sometimes, special exercisescan help move the crystals and make this problem better. Always ask your doctor before you do any exercises. Your doctor or a physical therapist can help you find the best exercises for your problem. General Before starting with a program, ask your doctor if you are healthy enough to do these exercises. Your doctor may have you work with a link trainer teacher or physical therapist to make a safe exercise program to meet your needs. Some of these exercises could make your problems worse at first. Ask your doctor or physical therapist how often and how long you should do these exercises. These are often done a few times each day until 2 days after the dizziness has ended. Bryan Maneuver This is mostly used when there is a diagnosis of a particular side having a problem. If your right side has a problem: Have a pillow towards the end of the bed where your feet most often are. Sit with your left side closest to the side of the bed. Sit far enough away from the pillow that it will end up being underyour shoulders when you lie back. Tilt your head slightly back while doing this exercise. Be sure tohold each position for 30 seconds before moving to the next position. Start sitting up with your legs extended in front of you. Turn your head long-term between looking straight forward and looking over your right shoulder. This is a 45 degree angle. Hold this position. Lie back quickly with your head in the same position. Turn your head long-term to the right and tilted back a little bit. Hold this position. Now roll your head to the left. Your head should now be tilted back a little bit. Turn your head to the left, looking long-term between straight ahead and over your left shoulder. This is a 45 degree angle. Hold this position. Now, roll onto your left shoulder. Point your head down to the left at a 45 degree angle. Hold this position. Finish by sitting up on the side of the bed. Do this 3 times throughout the day. If your left side has a problem: Have a pillow towards the end of the bed where your feet most often are. Sit with your right side closest to the side of the bed. Sit far enough away from the pillow that it will end up being under your shoulders when you lie back. Tilt your head slightly back while doing this exercise. Be sure to hold each position for 30 seconds before moving to the next position. Start sitting up with your legs extended in front of you. Turn your head long-term between looking straight forward and looking over your left shoulder. This is a 45 degree angle. Hold this position. Lie back quickly with your head in the same position. Turn your head long-term to the left and tilted back a little bit. Hold this position. Now, roll your head to the right. Tilt your head back a little bit. Turn your head to the rightlooking long-term between straight ahead and over your right shoulder. This is a 45 degree angle. Holdthis position. Now, roll onto your right shoulder. Point your head down to the right at a 45 degree angle. Hold this position. Finish by sitting up on the side of the bed. Do this 3 times throughout the day. Richter-Daroff Exercises This is mostly used when there is not a diagnosis of a particular side having a problem. Sit at the edge of the bed in the middle of one side. Now, lie down on your right side with your head angled upwards 45 degrees. This is looking long-term between straight ahead and over your right shoulder. Hold this position for 30 seconds or until the dizziness ends. Sit back up with your head straight and hold that position for 30 seconds. Now, lie down on your left side with your head angled upwards 45 degrees. This is looking long-term between straight ahead and over your left shoulder. Hold this position for 30 seconds or until thedizziness ends. Sit back up with your head straight and hold that position for 30 seconds. Repeat these steps 5times in a row, 3 times each day. What problems could happen? Your dizziness does not go away or gets worse You have a different kind of dizziness You have more nausea Sudden change in hearing New onset of ear pain New onset of ringing in the ears Fluid discharge from the ears Where can I learn more? [employer] http://www.brainandspine.org.uk/djuysdkcgi-pnotnduumzrahr-hwsmcsjqy Last Reviewed Date 2017-07-08 Consumer Information Use and Disclaimer This information is not specific medical advice and does not replace information you receive from your health care provider. This is only a brief summary of general information. It does NOT include allinformation about conditions, illnesses, injuries, tests, procedures, treatments, therapies, discharge instructions or life-style choices that may apply to you. You must talk with your health care provider for complete information about your health and treatment options. This information should not beused to decide whether or not to accept your health care provider?s advice, instructions or recommendations. Only your health care provider has the knowledge and training to provide advice that is right for you. Copyright Copyright 2019 [place] [employer] and its affiliates and/or licensors. All rights reserved. Patient Education Vertigo (a Type of Dizziness) Discharge Instructions About this topic Vertigo is a health problem where you feel that you and everything around you is spinning, tilting, or swaying. You may feel lightheaded and dizzy and may lose your balance. It may cause upset stomach or throwing up. This may be due to other illnesses or problems, such as: Benign positional vertigo Head injury Migraine headaches Motion sickness Injury or diseases of the inner ear, such as Mnire?s disease Middle ear infections What care is needed at home? Ask your doctor what you need to do when you go home. Make sure you ask questions if you do notunderstand what the doctor says. This way you will know what you need to do. Rest often. Stay away from holding your head in a way that may start an attack, such as lookingup or bending over. Take extra care when you change positions. Get up slowly from a sitting or lying down position.Sit on the edge of the bed and take deep breaths before getting out of bed. When you are resting, raise your head by using 2 pillows. You may need to use a cane or walker to help you walk without falling while you are dizzy. Do the exercises they teach you. Do not sleep on the side that you feel most dizzy. Take your drugs as ordered by your doctor. What follow-up care is needed? You may need to see your doctor for help with an upset stomach or to give you more fluids if you keep throwing up. Your doctor may ask you to make visits to the office to check on your progress. Be sure to keep these visits. What drugs may be needed? The doctor may order drugs to: Treat allergies Treat infection Stop pain Block certain messages between nerves Calm you and help you relax Treat upset stomach or throwing up Will physical activity be limited? Do not drive or work with heavy or dangerous machines until your signs of illness are gone. Climbingcan also be risky and should be avoided. What problems could happen? You may have fluid loss due to lots of throwing up. You may fall when you lose balance. You could get hurt or break a bone. When do I need to call the doctor? Signs of infection. These include a fever of 100.4F (38C) or higher , chills, ear or sinus pain. Being lightheaded for a long time or your dizziness is getting worse Not able to hear or ringing in your ears Trouble with talking or swallowing Weakness in arms or legs Blurred eyesight or seeing double You are not feeling better in 2 to 3 days or you are feeling worse Teach Back: Helping You Understand The Teach Back Method helps you understand the information we are giving you. The idea is simple. After talking with the staff, tell them in your own words what you were just told. This helps to make sure the staff has covered each thing clearly. It also helps to explain things that may have been a bit confusing. Before going home, make sure you are able to do these: I can tell you about my condition. I can tell you what I will do to help me stay safe when moving about. I can tell you what I will do if I have problems talking or moving. Where can I learn more? [employer] http://www.health.govt.nz/your-health/scnuogxknr-tmu-gnxofpccdx/diseases-and- illnesses/dizziness [facility] Choices http://www.nhs.uk/conditions/dizziness/pages/introduction.aspx [facility] Cho[facility] http://www.nhs.uk/conditions/vertigo/pages/introduction.aspx Last Reviewed Date 2018-01-21 Consumer Information Use and Disclaimer This information is not specific medical advice and does not replace information you receive from your health care provider. This is only a brief summary of general information. It does NOT include allinformation about conditions, illnesses, injuries, tests, procedures, treatments, therapies, discharge instructions or life-style choices that may apply to you. You must talk with your health care provider for complete information about your health and treatment options. This information should not beused to decide whether or not to accept your health care provider?s advice, instructions or recommendations. Only your health care provider has the knowledge and training to provide advice that is right for you. Copyright Copyright 2019 [place] [employer] and its affiliates and/or licensors. All rights reserved. documented in this encounter Progress Notes Mariza Choudhury FNP-C - 06/17/2019 3:00 PM EST PATIENT: Ruth Kingston : 1985 DATE OF SERVICE: 06/17/2019 CHIEF COMPLAINT: Chief Complaint Patient presents with ? Dizziness started two months on and off, started this morning this episode, nausea, lack of appetite Subjective HISTORY OF PRESENT ILLNESS: Ruth Kingston is a 33-y.o. female. PATIENT: Ruth Kingston : 1985 DATE OF SERVICE: 06/17/2019 Subjective SUBJECTIVE: Ruth Kingston is a 33-y.o. female who presents for evaluation of rotary vertigo- has had intermittently for 4 weeks The symptoms started 1 day ago and are unchanged. The attacks occur every several minutes and last 1 day. Positions that worsen symptoms: any motion. Previous workup/treatments: none. Associated ear symptoms: ears feel full Associated central nervous system symptoms: none. Recent infections: upper respiratory infection for approx 1 week -productive cough,nasal congestion Denies fever and chills Head trauma: denied. Drug ingestion: none. Noise exposure: no occupational exposure. OBJECTIVE: BP 120/70 (BP Location: Right arm, Patient Position: Sitting) | Pulse 74 | Temp 97.5 F (36.4 C) (Tympanic) | Resp 20 | Ht 5' 7" (1.702 m) | Wt 149 lb 12.8 oz (67.9 kg) | SpO2 99% | BMI 23.46 kg/m Past Medical History: Diagnosis Date ? Depression ? Deviated nasal septum 2006, 2007 corrected surgicaly ? Endometriosis ? LGSIL (low grade squamous intraepithelial lesion) on Pap smear 02/2013 ? Positive PPD Family History Problem Relation Age of Onset ? Stroke Mother ? Hypertension Mother Current Outpatient Medications Medication Sig ? Fexofenadine HCl (BRITTANY PO) Take by mouth. ? fluticasone (FLONASE) 50 MCG/ACT Nasal Suspension [place] 2 Sprays in nose DAILY. ? meclizine (ANTIVERT) 25 MG Oral Tab Take 0.5 Tabs by mouth THREE TIMES DAILY NEEDED for dizziness/vertigo. ? PRENAT VIT-FE FUM-FA-FISH OIL PO Take 1 Tab by mouth. ? sertraline (ZOLOFT) 100 MG Oral Tab TAKE 1 & 1/2 (ONE & ONE-HALF ) TABLETS BY MOUTH ONCE DAILY No current facility-administered medications for this visit. Allergies Allergen Reactions ? Doxycycline Rash Social History Socioeconomic History ? Marital status: Spouse name: Not on file ? Number of children: Not on file ? Years of education: Not on file ? Highest education level: Not on file Occupational History ? Not on file Social Needs ? Financial resource strain: Not on file ? Food insecurity Worry: Not on file Inability: Not on file ? Transportation needs Medical: Not on file Non-medical: Not on file Tobacco Use ? Smoking status: Never Smoker ? Smokeless tobacco: Never Used Substance and Sexual Activity ? Alcohol use: Not Currently Alcohol/week: 7.0 standard drinks Types: 7 Glasses of wine per week ? Drug use: No ? Sexual activity: Yes Partners: Male control/protection: Abstinence Lifestyle ? Physical activity Days per week: Not on file Minutes per session: Not on file ? Stress: Not on file Relationships ? Social connections Talks on phone: Not on file Gets together: Not on file Attends holiness service: Not on file Active member of club or organization: Not on file Attends meetings of clubs or organizations: Not on file Relationship status: Not on file ? Intimate partner violence Fear of current or ex partner: Not on file Emotionally abused: Not on file Physically abused: Not on file Forced sexual activity: Not on file Other Topics Concern ? Not on file Social History Narrative ? Not on file REVIEW OF SYSTEMS: Review of Systems Constitutional: Negative for chills, fever and malaise/fatigue. HENT: Positive for congestion. Negative for ear pain and sore throat. Eyes: Negative. Respiratory: Positive for cough and sputum production. Negative for shortness of breath. Cardiovascular: Negative for chest pain and palpitations. Gastrointestinal: Negative. Negative for abdominal pain, diarrhea, nausea and vomiting. Genitourinary: Negative. Negative for dysuria. Musculoskeletal: Negative. Negative for myalgias. Skin: Negative for rash. Neurological: Positive for dizziness. Negative for headaches. Psychiatric/Behavioral: Negative for depression. Objective PHYSICAL EXAM: VITALS: BP 120/70 (BP Location: Right arm, Patient Position: Sitting) | Pulse 74 | Temp 97.5 F (36.4 C) (Tympanic) | Resp 20 | Ht 5' 7" (1.702 m) | Wt 149 lb 12.8 oz (67.9 kg) | SpO2 99% | BMI 23.46 kg/m Body mass index is 23.46 kg/m. Physical Exam Constitutional: Appearance: She is ill-appearing. HENT: Head: Normocephalic. Right Ear: Tympanic membrane normal. Left Ear: Tympanic membrane normal. Nose: Congestion present. Mouth/Throat: Mouth: Mucous membranes are moist. Eyes: Extraocular Movements: Extraocular movements intact. Conjunctiva/sclera: Conjunctivae normal. Pupils: Pupils are equal, round, and reactive to light. Neck: Musculoskeletal: Normal range of motion. Cardiovascular: Rate and Rhythm: Normal rate. Heart sounds: Normal heart sounds. No murmur. Pulmonary: Effort: Pulmonary effort is normal. Breath sounds: Normal breath sounds. Abdominal: General: Bowel sounds are normal. There is no distension. Palpations: There is no mass. Tenderness: There is no abdominal tenderness. Musculoskeletal: Normal range of motion. General: No swelling. Lymphadenopathy: Cervical: No cervical adenopathy. Skin: General: Skin is warm. Capillary Refill: Capillary refill takes less than 2 seconds. Findings: No rash. Neurological: Mental Status: She is alert and oriented to person, place, and time. Cranial Nerves: No cranial nerve deficit. Sensory: No sensory deficit. Motor: No weakness. Coordination: Coordination normal. Gait: Gait normal. Deep Tendon Reflexes: Reflexes normal. Psychiatric: Mood and Affect: Mood normal. ASSESSMENT / IMPRESSION: ICD-9-CM ICD-10-CM 1. Dizziness 780.4 R42 AMBULATORY 12 LEAD EKG (GLOBAL) 2. Vertigo 780.4 R42 3. Upper respiratory tract infection, unspecified type 465.9 J06.9 Plan discussed starting meclizine- caution due to If no improvement may refer to ENT for further evaluation Discussed eustachian tube dysfunction - no cerumen or infection present start using Flonase as directed to reduce inflammation so ears can drain Upper Respiratory Infection ?? Take Tylenol and Ibuprofen over the counter as needed for pain and symptom relief Salt water gargles, cough drops, and hot tea with lemon or honey to help soothe your throat. ?? Get plenty of rest and fluids ?? Please call or return if symptoms worsen or fail to improve in 7-10 days. Author: ARABELLA Miranda 06/17/2019 15:50 documented in this encounter Plan of Treatment Date Type Specialty Care Team Description 08/20/2019 Office Visit Family Practice Bev Villa MD [address] [place] [address] [phone] Name Type Priority Associated Diagnoses Order Schedule AMBULATORY 12 LEAD EKG EKG Routine Dizziness Ordered: 06/17/2019 (GLOBAL) Health Maintenance Due Date Last Done Comments HPV IMMUNIZATION SERIES (2 - 09/22/2013 08/25/2013 Female 3-dose series) DEPRESSION SCREENING 07/28/2019 07/27/2018 PAP SMEAR 02/12/2022 02/12/2019, 03/20/2015, 08/25/2013, Additional history exists DTaP/Tdap/Td Vaccines ( - 08/26/2023 08/25/2013 Tdap) INFLUENZA VACCINE Completed 02/19/2019, 05/26/2017, 05/20/2016, Additional history exists HEPATITIS A IMMUNIZATION Aged Out No longer eligible SERIES based on patient's age to complete this topic MENINGOCOCCAL VACCINE IMM Aged Out No longer [...] filedocumented in this encounter Visit Diagnoses Diagnosis Dizziness Dizziness and giddiness Vertigo Dizziness and giddiness Upper respiratory tract infection, unspecified type documented in this encounter Guarantor Name Account Type Relation to Date of Phone Billing Patient Address Ruth Kingston Personal/Family 1985 [address] [phone] [place], [place] ([place]) [id number] documented as of this encounter
--- NOTE | 2019-08-01 10:07 | ED ---
Dizziness - HPI Summary HPI Summary: 33 y/o female presented to [facility] for an episode of dizziness yesterday morning after a mini shifter at [facility]. Pt reports weakness and difficulty ambulating. Patient denies any thoughts of self harm, facial droop, diaphoresis, fever, chills, erythema of eyes, sore throat, chest pain, shortness of breath, cough, abdominal pain, nausea/vomiting, dysuria, hematuria, myalgia, edema, rash. Sx are aggravated by moving her head. Pt notes she is getting enough sleep but still feels chronically sleepy. She currently takes Sudafed, Meclizine, and Zoloft. Pt notes having episodes of vertigo since April 2019 that initially lasted a week at a time. When she was given medications they helped alleviate her sx but she reports they are back now. She has seen 3 different doctors for her sx but has not seen a specialist due to lack of a referral. She states her PCP told her she has more fluid than normal in her ears. She notes a viral infection 1 month ago with sx including congestion, cough, and rhinorrhea that resolved. Pt drinks EtOH occasionally and has had 2 CT scans recently due to kidney lesion. No seasonal allergies or FHx of Meniere's noted. - History Of Current Complaint Chief Complaint: EDDizziness Stated Complaint: VERTIGO PER PT Time Seen by Provider: 08/01/19 09:31 Hx Obtained From: Patient Onset/Duration: Resolved Timing: Intermittent Episode Lasting - 1 week initially Character: Weak, Dizzy Aggravating Factor(s): Change In Head Position Alleviating Factor(s): Nothing Associated Signs And Symptoms: Positive: Other: - positive - dizziness, weakness , difficulty ambulating; negative - thoughts of self harm, facial droop, diaphoresis, fever, chills, erythema of eyes, sore throat, chest pain, shortness of breath, cough, abdominal pain, nausea/vomiting, dysuria, hematuria , myalgia, edema, rash - Allergies/Home Medications Allergies/Adverse Reactions: Allergies Allergy/AdvReac Type Severity Reaction Status Date / Time doxycycline Allergy Mild Rash And Verified 08/01/19 10:13 Itching Home Medications: Home Medications Sertraline* [Zoloft*] 150 mg PO 0900 12/04/15 [History Confirmed 11/30/18] Vitamin TAB* 1 tab PO DAILY 11/06/18 [History Confirmed 11/30/18] Meclizine TAB* [Antivert 12.5 TAB*] 12.5 mg PO DAILY PRN 08/01/19 [History Confirmed 08/01/19] PMH/Surg Hx/FS Hx/Imm Hx Endocrine/Hematology History: Denies: Hx Anticoagulant Therapy, Hx Blood Disorders, Hx Diabetes, Hx Thyroid Disease, Hx Anemia, Hx Unexplained Bleeding Cardiovascular History: Denies: Hx Hypertension, Hx Pacemaker/ICD History: Reports: Other Problems/Disorders - UTI; Lt ovarian cyst Denies: Hx Renal Disease Sensory History: Psychiatric History: Reports: Hx Anxiety, Hx Depression, Hx Community Mental Health Tx, Hx Suicide Attempt Denies: Hx Panic Disorder, Hx of Violent Episodes Against Others, Hx Substance Abuse - Surgical History Surgery Procedure, Year, and Place: CYST REMOVED FROM LT [facility]ARY, NOSE SURGERY - Immunization History Date of Tetanus Vaccine: unk Date of Influenza Vaccine: fall 2017 Infectious Disease History: No Infectious Disease History: Denies: Traveled Outside the [place] in Last 30 Days - Family History Known Family History: Negative: Hypertension, Diabetes - Social History Alcohol Use: Occasionally Hx Substance Use: No Substance Use Type: Reports: None Hx Tobacco Use: No Smoking Status (MU): Never Smoked Tobacco Have You Smoked in the Last Year: No Review of Systems Negative: Fever, Chills, Skin Diaphoresis Negative: Blurred Vision, Erythema Negative: Sore Throat Negative: Chest Pain Negative: Shortness Of Breath, Cough Negative: Abdominal Pain, Vomiting, Nausea Negative: dysuria, hematuria Negative: Myalgia, Edema Negative: Rash Neurological/Mental Status: Other - positive - dizziness Positive: Weakness Psychological: Other - negative - thoughts of self harm All Other Systems Reviewed And Are Negative: Yes Physical Exam - Summary Physical Exam Summary: Constitutional: Well-developed, Well-nourished, Alert. (-) Distressed Skin: Warm, Dry HENT: Normocephalic; Atraumatic Eyes: Conjunctiva normal Neck: Musculoskeletal ROM normal neck. (-) JVD, (-) Stridor, (-) Tracheal deviation Cardio: Rhythm regular, rate normal, Heart sounds normal; Intact distal pulses; The pedal pulses are 2+ and symmetric. Radial pulses are 2+ and symmetric. (-) Murmur Pulmonary/Chest wall: Effort normal. (-) Respiratory distress, (-) Wheezes, (-) Rales Abd: Soft. (-) Tenderness, (-) Distension, (-) Guarding, (-) Rebound Musculoskeletal: (-) Edema Lymph: (-) Cervical adenopathy Neuro: Alert, Oriented x3, Strength normal, Cranial nerves II-XII are grossly intact. (-) Dysmetria, (-) Nystagmus, (-) Ataxia by finger to nose testing, (-) Sensory deficit. Gait steady. Jerald-Hallpike test negative. Supine roll test negative. Psych: Mood and affect Normal Triage Information Reviewed: Yes Vital Signs On Initial Exam: Initial Vitals Temp Pulse Resp BP Pulse Ox 97.7 F 102 18 150/100 97 08/01/19 09:27 08/01/19 09:27 08/01/19 09:27 08/01/19 09:27 08/01/19 09:27 Vital Signs Reviewed: Yes Procedures - Sedation Patient Received Moderate/Deep Sedation with Procedure: No Diagnostics - Vital Signs Vital Signs Temp Pulse Resp BP Pulse Ox 08/01/19 09:27 97.7 F 102 18 150/100 97 - Laboratory Result Diagrams: 08/01/19 10:25 08/01/19 10:25 Lab Statement: Any lab studies that have been ordered have been reviewed, and results considered in the medical decision making process. - EKG 1020 Cardiac Rate: NL EKG Rhythm: Sinus Rhythm ST Segment: Normal Summary of EKG Findings: EKG at 1020 shows NSR at 84bpm. No STEMI. This EKG was reviewed and interpreted by the ED physician. Dizzy Course/Dx - Course Course Of Treatment: 33 y/o female presented to [facility] for an episode of dizziness yesterday morning after a mini shifter at [facility]. Pt reports weakness and difficulty ambulating. Patient denies any thoughts of self harm, facial droop, diaphoresis, fever, chills, erythema of eyes, sore throat, chest pain, shortness of breath, cough, abdominal pain, nausea/vomiting, dysuria, hematuria , myalgia, edema, rash. Sx are aggravated by moving her head. Pt notes she is getting enough sleep but still feels chronically sleepy. She currently takes Sudafed, Meclizine, and Zoloft. Pt notes having episodes of vertigo since April 2019 that initially lasted a week at a time. When she was given medications they helped alleviate her sx but she reports they are back now. She has seen 3 different doctors for her sx but has not seen a specialist due to lack of a referral. She states her PCP told her she has more fluid than normal in her ears. She notes a viral infection 1 month ago with sx including congestion, cough, and rhinorrhea that resolved. Pt drinks EtOH occasionally and has had 2 CT scans recently due to kidney lesion. No seasonal allergies or FHx of Meniere's noted. Neuro exam was normal. Gait steady. Jerald-Hallpike test negative. Supine roll test negative. Pt declined CT imaging today but we advised imaging such as MRI may be warranted. Labs showed BUN/creatinine ratio 33.9, and Mg 1.8. EKG at 1020 shows NSR at 84bpm. No STEMI. Pt was diagnosed with vertigo and depression; and discharged to home. - Diagnoses Differential Diagnosis/HQI/PQRI: Labyrinthitis, Meniere's Disease, Other - BPPV , Mass, Conversion disorder Provider Diagnoses: Vertigo, Depression - Critical Care Time Critical Care Statement: Critical care time is provided exclusive of any time spent performing procedures. Discharge ED - Sign-Out/Discharge Documenting (check all that apply): Patient Departure - dc - Discharge Plan Condition: Stable Disposition: HOME Patient Education Materials: Vertigo (ED), Depression (ED) Referrals: Bev Villa MD [Primary Care Provider] - Khurram Payne MD [Medical Doctor] - Additional Instructions: RETURN TO THE EMERGENCY DEPARTMENT FOR CHANGING OR WORSENING SYMPTOMS. Follow up with Dr. Payne in 3-5 days. Follow up with your primary care provider in a week. We recommend an outpatient MRI. - Attestation Statements Document Initiated by Scribe: Yes Documenting Scribe: John Padilla Provider For Whom Scribe is Documenting (Include Credential): Scott Sanchez MD Scribe Attestation: John Silveira, scribed for Scott Sanchez MD on 08/01/19 at 1140. Status of Scribe Document: Ready
[2019-08-01 10:35] LABS: Hematocrit 41 % (35-47); Hemoglobin 14.1 g/dL (12.0-16.0); Mean Corpuscular HGB Conc 35 g/dL (31-36); Mean Corpuscular Hemoglobin 30 pg (27-31); Mean Corpuscular Volume 86 fL (80-97); Mean Platelet Volume 9.5 fL (7.4-10.4); Platelet Count 181 10^3/uL (150-450); Red Blood Count 4.69 10^6 /uL (3.70-4.87); Red Cell Distribution Width 13 % (10-15)
[2019-08-01 10:53] LABS: Albumin 4.3 g/dL (3.2-5.2); Albumin/Globulin Ratio 1.5 (1-3); BUN/Creatinine Ratio 33.9 (8-20); Calcium 8.7 mg/dL (8.6-10.3); EGFR African American 142.9 (>60); EGFR Non-African American 118.1 (>60); Globulin 2.8 g/dL (2-4); Magnesium 1.8 mg/dL (1.9-2.7); Total Bilirubin 0.4 mg/dL (0.2-1.0); Total Protein 7.1 g/dL (6.4-8.9)
[2019-08-01 11:27] LABS: TSH (Thyroid Stimulating Horm) 0.59 mcIU/mL (0.34-5.60)
[2019-08-01 11:29] LABS: Free T4 0.76 ng/dL (0.61-1.12)
[2019-08-01 11:55] VITALS: BP 110/74
== END 2019-08-01 11:55 | disposition home or self-care (01) ==
LOC: ED 09:25
DX: R42 Dizziness and giddiness (principal); R53.1 Weakness; Z88.8 Allergy status to other drugs, medicaments and biological substances; Z79.899 Other long term (current) drug therapy
CPT/HCPCS: 36415; 80053; 83735; 84439; 84443; 85027; 93005; 99282

== ENCOUNTER 2021-05-07 04:11 | Inpatient (IN) ==
[2021-05-07] MEDS ORDERED: Lactated Ringers 1000 ml BAG 1,000 ML IV ONE ×2 (04:28→09:56)
[2021-05-07] MEDS ORDERED: Buffered Lidocaine 1% SYRIN 1 ml INTRADERM ONE (04:28)
[2021-05-07 05:47] LABS: ABS Eosinophils 0.1 10^3/ul (0-0.6); ABS Lymphocytes 2.2 10^3/ul (1.0-4.8); ABS Monocytes 0.6 10^3/ul (0-0.8); ABS Neutrophils 6.5 10^3/ul (1.5-7.7); Eosinophil % 0.6 %; Hematocrit 36 % (35-47); Hemoglobin 12.5 g/dL (12.0-16.0); Lymphocyte % 23.7 %; Mean Corpuscular HGB Conc 35 g/dL (31-36); Mean Corpuscular Hemoglobin 31 pg (27-31); Mean Corpuscular Volume 88 fL (80-97); Mean Platelet Volume 10.2 fL (7.4-10.4); Platelet Count 165 10^3/uL (150-450); Red Blood Count 4.11 10^6 /uL (3.70-4.87); Red Cell Distribution Width 13 % (10-15); White Blood Count 9.4 10^3/uL (3.5-10.8)
[2021-05-07 06:07] LABS: Urine Benzodiazepine Screen None Detected (None Detect); Urine Cannabinoids Screen None Detected (None Detect); Urine Opiates Screen None Detected (None Detect)
[2021-05-07] MEDS ORDERED: Calcium Carb (TUMS) 500 mg CHEW TAB PO PRN (06:33)
[2021-05-07] MEDS ORDERED: OBEPIDURAL 250 ML EPIDURAL ONE (09:02)
[2021-05-07] MEDS ORDERED: Sodium Citrate/Citric Acid LIQ 15 ML UDC PO PRN (09:56)
[2021-05-07] MEDS ORDERED: Phenylephrine 40 mcg/mL 10mL (400mcg) SYRINGE IV PUSH PRN ×2 (09:56)
[2021-05-07] MEDS ORDERED: EPHEDrine (Pressors) 50 MG/ML VIAL IV PUSH PRN ×2 (09:56)
[2021-05-07] MEDS ORDERED: OBEPIDURAL 250 ML EPIDURAL SCH (10:00)
[2021-05-07] MEDS ORDERED: Lactated Ringers 1000 ml BAG 1,000 ML IV SCH ×2 (10:00→14:00)
[2021-05-07] MEDS ORDERED: Oxytocin in LR 20 UNITS/1,000 ML BAG IVPB SCH ×2 (10:45→14:00)
[2021-05-07 12:24] LABS: Urine Appearance Clear; Urine Bilirubin Negative (Negative); Urine Blood Negative (Negative); Urine Color Straw; Urine Glucose Negative (Negative); Urine Ketones Negative (Negative); Urine Nitrite Negative (Negative); Urine Protein Negative (Negative); Urine Specific Gravity 1.004 (1.002-1.030); Urine Urobilinogen Negative (Negative)
[2021-05-07] MEDS ORDERED: Dibucaine 1% OINT 28.35 GM TUBE PR PRN (13:46)
[2021-05-07] MEDS ORDERED: Witch Hazel PAD JAR TOPICAL PRN (13:46)
[2021-05-08 06:55] LABS: ABS Eosinophils 0.1 10^3/ul (0-0.6); ABS Lymphocytes 1.9 10^3/ul (1.0-4.8); ABS Monocytes 0.5 10^3/ul (0-0.8); ABS Neutrophils 6.6 10^3/ul (1.5-7.7); Eosinophil % 0.7 %; Hematocrit 31 % (35-47); Hemoglobin 10.7 g/dL (12.0-16.0); Lymphocyte % 21.3 %; Mean Corpuscular HGB Conc 35 g/dL (31-36); Mean Corpuscular Hemoglobin 31 pg (27-31); Mean Corpuscular Volume 89 fL (80-97); Mean Platelet Volume 9.9 fL (7.4-10.4); Platelet Count 136 10^3/uL (150-450); Red Blood Count 3.48 10^6 /uL (3.70-4.87); Red Cell Distribution Width 14 % (10-15); White Blood Count 9.1 10^3/uL (3.5-10.8)
[2021-05-09 07:58] VITALS: BP 119/67
== END 2021-05-09 11:20 | disposition home or self-care (01) | DRG 560 ==
LOC: MCHOBOUT 04:11 → MCHOB 04:39
PROVIDERS: ADMIT Advanced Practice Midwife; ATTEND Advanced Practice Midwife